=== PATIENT | female | born 1940 | race Caucasian/White ===

== ENCOUNTER 2016-11-06 06:59 | Emergency (ER) | payer OTHER ==
[~2016-11-06] VITALS: Ht 157.5 cm; Wt 76.7 kg
[2016-11-06 07:09] VITALS: BP 180/74
--- NOTE | 2016-11-06 07:40 | ED GI/GU/ABDOMINAL COMPLAINT ---
History of Present Illness General Chief Complaint: General Adult Stated Complaint: PT C/O BACK PAIN AFTER HAVING BM Source: patient, family, old records Exam Limitations: dementia Vital Signs & Intake/Output Vital Signs & Intake/Output Vital Signs Date Time Temp Pulse Resp B/P B/P Pulse O2 O2 Flow FiO2 Mean Ox Delivery Rate 11/06 0748 Room Air Room Air 11/06 0709 97.0 73 20 180/74 96 Room Air Allergies Coded Allergies: No Known Allergies (11/06/16) Reconcile Medications Aspirin (Aspirin*) 81 MG TAB.CHEW 1 TAB PO DAILY HEART HEALTH (Reported) Calcium (Elemental-Fr Calcarb) (Calcium) 600 MG CALCIUM (1,500 MG) TABLET 1 TAB PO DAILY SUPPLEMENT (Reported) Cholecalciferol (Vitamin D3) (Vitamin D) 2,000 UNIT TABLET 1 TAB PO DAILY VITAMIN SUPPORT (Reported) Famotidine 40 MG TABLET 1 TAB PO DAILY GI (Reported) Simvastatin (Simvastatin*) 40 MG TABLET 1 TAB PO QPM CHOLESTEROL (Reported) Triage Note: PT TO ED C/O BACK PAIN X A FEW WEEKS. DENIES ANY INJURY. STATES PAIN IS WORSE WITH HAVING A BM. HAS TAKEN ADVIL WITH SOME RELIEF. STATES SOMETIMES SHE HAS TO STRAIN WITH HAVING A BM. Triage Nurses Notes Reviewed? yes ? N Is pt currently ? No HPI: Patient states that she suffers from mid back pain. Yesterday while moving her bowels had a sudden onset of mid back pain. The pain is constant. The pain increases with movement. There is no weakness or numbness. Patient states that her abdomen feels bloated this morning. The pain is sharp and throbbing in nature. She rates it as severe on the pain scale. Patient took a half pill of Advil last night without any relief. Patient denies any incontinence of bowel or bladder. Patient states that occasionally the pain radiates to her right lower quadrant but is not doing so currently. Patient has not noticed any blood in her urine. Past History Travel History Traveled to [place] past 21 day No Medical History Any Pertinent Medical History? see below for history Neurological: seizure, BRAIN ANEURYSM Cardiovascular: hypertension, hyperlipidemia Gastrointestinal: GERD Surgical History Surgical History: hysterectomy, gamma knife Psychosocial History What is your primary language Sierra Leonean Tobacco Use: Quit >30 days ago ETOH Use: denies use Illicit Drug Use: denies illicit drug use Family History Hx Contributory? No Review of Systems Review of Systems Constitutional: Reports: no symptoms. EENTM: Reports: no symptoms. Respiratory: Reports: no symptoms. Cardiovascular: Reports: no symptoms. GI: Reports: see HPI, bloating. Genitourinary: Reports: no symptoms. Musculoskeletal: Reports: see HPI, back pain. Skin: Reports: no symptoms. Neurological/Psychological: Reports: no symptoms. Hematologic/Endocrine: Reports: no symptoms. Immunologic/Allergic: Reports: no symptoms. All Other Systems: Reviewed and Negative Physical Exam Physical Exam General Appearance: well developed/nourished, alert, awake, mild distress Head: atraumatic, normal appearance Eyes: Bilateral: PERRL, EOMI. Ears, Nose, Throat, Mouth: hearing grossly normal, moist mucous membrane Neck: normal inspection, supple, full range of motion Respiratory: normal breath sounds, chest non-tender, no respiratory distress, lungs clear Cardiovascular: regular rate/rhythm, normal peripheral pulses Gastrointestinal: normal bowel sounds, soft, non-tender, no organomegaly, DISTENDED Back: CVA tenderness (R), no vertebral tenderness Extremities: normal range of motion Neurologic/Psych: no motor/sensory deficits, awake, alert, oriented x 3, normal gait, normal mood/affect Skin: intact, normal color, warm/dry Core Measures ACS in differential dx? No Severe Sepsis Present: No Septic Shock Present: No Progress Differential Diagnosis: AAA, biliary colic, bowel obstruction, cholecystitis, ischemic bowel, inflamm bowel dis, kidney stone, UTI/pyelo Plan of Care: Orders Procedure Date/time Status URINALYSIS 11/06 0739 Complete COMPREHENSIVE METABOLIC PANEL 11/06 0739 Complete CBC WITHOUT DIFFERENTIAL 11/06 0739 Complete Laboratory Tests 11/06/16 0855: Urine Color YEL, Urine Clarity CLEAR, Urine pH 6.0, Ur Specific [place] 1.025, Urine Protein NEG, Urine Ketones TRACE H, Urine Nitrite NEG, Urine Bilirubin NEG, Urine Urobilinogen 0.2, Ur Leukocyte Esterase NEG, Ur Microscopic EXAM NOT REQUIRED, Urine Hemoglobin NEG, Urine Glucose NEG 11/06/16 0750: Anion Gap 13, Estimated GFR 54 L, BUN/Creatinine Ratio 25.0, Glucose 109 H, Calcium 9.7, Total Bilirubin 0.7, AST 28, ALT 36, Alkaline Phosphatase 62, Total Protein 7.4, Albumin 4.4, Globulin 3.0, Albumin/Globulin Ratio 1.5, CBC w Diff NO MAN DIFF REQ, RBC 4.71, MCV 88.8, MCH 30.2, RDW 13.2, MPV 9.4, Gran % 72.0, Lymphocytes % 15.6 L, Monocytes % 9.4 H, Eosinophils % 2.6, Basophils % 0.4, Absolute Granulocytes 6.4, Absolute Lymphocytes 1.4, Absolute Monocytes 0.8 H, Absolute Eosinophils 0.2, Absolute Basophils 0, PUBS MCHC 34.0 Diagnostic Imaging: Viewed by Me: CT Scan. Discussed w/RAD: CT Scan. Radiology Impression: PATIENT: WESTLEY HERNANDEZ PRESENT AGE: 76 PATIENT ACCOUNT NO: [id number] : 41 LOCATION: [facility] ORDERING PHYSICIAN: FREDA HENRY MD SERVICE DATE: 11/06/16 EXAM TYPE: CAT - CT ABD & PELVIS W/O IV CONTRAS EXAMINATION: CT ABDOMEN AND PELVIS WITHOUT CONTRAST CLINICAL INFORMATION: Right flank pain COMPARISON: None TECHNIQUE: Multidetector volumetric imaging was performed from the superior aspect of the liver through the pubic symphysis. Sagittal and coronal reformatted images were obtained on the technologist's workstation. DLP: 394.16 mGy-cm FINDINGS: LUNG BASES: There are mild bibasilar opacities favoring atelectasis. LIVER, GALLBLADDER, AND BILIARY TREE: The liver is normal in size, shape, and attenuation. No focal hepatic lesion or biliary ductal dilatation is present. The gallbladder is unremarkable. PANCREAS: Unremarkable. SPLEEN: Unremarkable. ADRENAL GLANDS: Unremarkable. KIDNEYS AND URETERS: The kidneys are normal in size, shape, and attenuation. No hydronephrosis, hydroureter, or calculi seen. No perinephric stranding. BLADDER: Unremarkable. GASTROINTESTINAL TRACT: There is suggestion of a small hiatal hernia. Colonic diverticulosis is noted. The small and large bowel are otherwise unremarkable without evidence of obstruction or pericolonic inflammatory change. The appendix is unremarkable. No free fluid or free air is seen. ABDOMINAL WALL: No significant hernia is appreciated. LYMPH NODES: Normal. VASCULAR: There is atherosclerotic calcification along the aorta. PELVIC VISCERA: Patient is status post hysterectomy. OSSEOUS STRUCTURES: Degenerative changes are noted in the spine. IMPRESSION: 1. No renal/ureteral calculi or hydronephrosis. 2. Suggestion of a small hiatal hernia. 3. Colonic diverticulosis. DICTATED BY: EMMANUEL PERES MD DATE/TIME DICTATED:11/06/16808 ALTERATION TAILOR APPRENTICE:UZMA DATE/TIME TRANSCRIBED:11/06/16808 CONFIDENTIAL, DO NOT COPY WITHOUT APPROPRIATE AUTHORIZATION. <Electronically signed in Other Vendor System> SIGNED BY: EMMANUEL PERES MD 11/06/16818 Initial ED EKG: none Comments: PT IS FEELING MUCH BETTER AFTER THE TORADOL. Departure Departure Disposition: HOME OR SELF CARE Condition: Stable Clinical Impression Primary Impression: Back pain Referrals: JOSHUA PACE MD (PCP/Family) Additional Instructions: RETURN IF SYMTPOMS WORSEN OR FOR ANY CONCERNS Departure Forms: Customer Survey General Discharge Information
[2016-11-06] MEDS ORDERED: FAMOTIDINE40 M1 PO (08:00)
[2016-11-06] MEDS ORDERED: SIMVASTATIN40 M1 PO (08:00)
[2016-11-06] MEDS ORDERED: CALCIUM600 M3 PO (08:01)
[2016-11-06] MEDS ORDERED: ASPIRIN81 M4 PO (08:01)
[2016-11-06 08:02] LABS: ABSOLUTE BASOPHIL COUNT 0 /CUMM (0.0-0.2); ABSOLUTE EOSINOPHIL COUNT 0.2 /CUMM (0.0-0.7); ABSOLUTE GRANULOCYTE CT 6.4 /CUMM (1.4-6.5); ABSOLUTE LYMPH COUNT 1.4 /CUMM (1.2-3.4); ABSOLUTE MONOCYTE COUNT 0.8 /CUMM (0.10-0.60); BASOPHIL % 0.4 % (0.0-2.0); EOSINOPHIL % 2.6 % (0-5); HEMATOCRIT 41.8 % (37-47); MEAN CORPUSCULAR HGB 30.2 PG (27.0-31.0); MEAN CORPUSCULAR VOLUME 88.8 FL (81.0-99.0); MEAN PLATELET VOLUME 9.4 FL (7.4-10.4); PLATELET COUNT 185 /CUMM (130-400); RBC DISTRIBUTION WIDTH 13.2 % (11.5-14.5); RED BLOOD CELL CT 4.71 /CUMM (4.20-5.40); WHITE BLOOD CELL COUNT 8.9 /CUMM (4.8-10.8)
[2016-11-06] MEDS ORDERED: VITAMIN D2000 UNI1 PO (08:02)
--- NOTE | 2016-11-06 08:19 | CT SCAN REPORT ---
EXAMINATION: CT ABDOMEN AND PELVIS WITHOUT CONTRAST CLINICAL INFORMATION: Right flank pain COMPARISON: None TECHNIQUE: Multidetector volumetric imaging was performed from the superior aspect of the liver through the pubic symphysis. Sagittal and coronal reformatted images were obtained on the technologist's workstation. DLP: 394.16 mGy-cm FINDINGS: LUNG BASES: There are mild bibasilar opacities favoring atelectasis. LIVER, GALLBLADDER, AND BILIARY TREE: The liver is normal in size, shape, and attenuation. No focal hepatic lesion or biliary ductal dilatation is present. The gallbladder is unremarkable. PANCREAS: Unremarkable. SPLEEN: Unremarkable. ADRENAL GLANDS: Unremarkable. KIDNEYS AND URETERS: The kidneys are normal in size, shape, and attenuation. No hydronephrosis, hydroureter, or calculi seen. No perinephric stranding. BLADDER: Unremarkable. GASTROINTESTINAL TRACT: There is suggestion of a small hiatal hernia. Colonic diverticulosis is noted. The small and large bowel are otherwise unremarkable without evidence of obstruction or pericolonic inflammatory change. The appendix is unremarkable. No free fluid or free air is seen. ABDOMINAL WALL: No significant hernia is appreciated. LYMPH NODES: Normal. VASCULAR: There is atherosclerotic calcification along the aorta. PELVIC VISCERA: Patient is status post hysterectomy. OSSEOUS STRUCTURES: Degenerative changes are noted in the spine. IMPRESSION: 1. No renal/ureteral calculi or hydronephrosis. 2. Suggestion of a small hiatal hernia. 3. Colonic diverticulosis.
== END 2016-11-06 09:33 ==
LOC: ERH 06:59
PROVIDERS: Emergency Medicine
DX: M54.9 Dorsalgia, unspecified (principal)
CPT/HCPCS: 74176; 81003; 96372; J1885

== ENCOUNTER 2017-10-12 19:19 | Inpatient (IN) | payer OTHER ==
[~2017-10-12] VITALS: Ht 157.5 cm; Wt 69.1 kg
[~2017-10-12 19:19] MED LIST: ASPIRIN81 M4 PO; BACLOFEN10 M1 PO; CALCIUM600 M3 PO; FAMOTIDINE40 M1 PO; IBUPROFEN600 M1 PO; SIMVASTATIN40 M1 PO; VITAMIN D2000 UNI1 PO
--- NOTE | 2017-10-12 19:35 | ED GENERAL ADULT ---
History of Present Illness General Chief Complaint: Neuro Symptoms/ Deficit Stated Complaint: BIBA HEADACHE, HIGH BP, MIN RESPONSIVE Source: family, EMS Exam Limitations: confusion, poor historian Vital Signs & Intake/Output Vital Signs & Intake/Output Vital Signs Date Time Temp Pulse Resp B/P B/P Pulse O2 O2 Flow FiO2 Mean Ox Delivery Rate 10/12 2156 96.7 69 18 160/80 96 Room Air 10/12 2058 96.7 66 20 133/86 97 Room Air 10/12 1944 99 Room Air 10/12 1930 98.5 73 22 193/86 99 Room Air Allergies Coded Allergies: No Known Allergies (11/06/16) Reconcile Medications Aspirin (Aspirin*) 81 MG TAB.CHEW 1 TAB PO DAILY HEART HEALTH (Reported) Baclofen 10 MG TABLET 1 TAB PO TIDPRN PRN muscle spasm/strain Calcium (Elemental-Fr Calcarb) (Calcium) 600 MG CALCIUM (1,500 MG) TABLET 1 TAB PO DAILY SUPPLEMENT (Reported) Cholecalciferol (Vitamin D3) (Vitamin D) 2,000 UNIT TABLET 1 TAB PO DAILY VITAMIN SUPPORT (Reported) Famotidine 40 MG TABLET 1 TAB PO DAILY GI (Reported) Ibuprofen 600 MG TABLET 1 TAB PO Q6P PRN pain with food Simvastatin (Simvastatin*) 40 MG TABLET 1 TAB PO QPM CHOLESTEROL (Reported) Triage Note: PT BIBA FROM HOME. FAMILY TOLD EMS PT BEGAN TO COMPLAIN OF HEADACHE A 6AM AND WAS NOT ACTING HERSELF ALL DAY, AND BECOMING LESS RESPONSIVE. PT ARRIVES ALERT BUT ONLY SAYING "OH GOD", NOT ANSWERING QUESTIONS, NOT RESPONDING TO COMMANDS. BS PER EMS 122. [facility] Triage Nurses Notes Reviewed? yes Onset: Abrupt Duration: hour(s): Timing: recent history HPI: 10/11/17 7:45 PM 77-year-old female brought into the emergency department by ambulance for altered mental status. According to the family the patient was doing okay after she was discharged on Wednesday. She seemed to be okay Wednesday evening. This morning she was confused and grabbing at things. She is progressively become more confused throughout the day. She was last seen normal last night. On physical exam she is agitated and confused. There is no focal weakness. Pupils are reactive. Past History Travel History Traveled to [place] past 21 day No Medical History Any Pertinent Medical History? see below for history Neurological: CVA, seizure, BRAIN ANEURYSM EENT: NONE Cardiovascular: hypertension, hyperlipidemia Respiratory: NONE Gastrointestinal: GERD Hepatic: NONE Renal: NONE Musculoskeletal: NONE Psychiatric: NONE Endocrine: NONE Blood Disorders: NONE Cancer(s): NONE TRANSCRIPTION COORDINATOR/Reproductive: NONE Surgical History Surgical History: hysterectomy, gamma knife Psychosocial History What is your primary language Bahamian Tobacco Use: Refused to answer ETOH Use: denies use Family History Hx Contributory? No Review of Systems Review of Systems Constitutional: Denies: fever. EENTM: Denies: visual changes. Respiratory: Denies: short of breath. Cardiovascular: Denies: chest pain. GI: Reports: no symptoms. Genitourinary: Reports: no symptoms. Musculoskeletal: Reports: no symptoms. Skin: Denies: rash. Neurological/Psychological: Reports: confusion. Hematologic/Endocrine: Denies: bruising, bleeding. Immunologic/Allergic: Reports: no symptoms. Physical Exam Physical Exam General Appearance: anxious, severe distress Head: atraumatic, normal appearance Eyes: Bilateral: PERRL. Ears, Nose, Throat: normal ENT inspection Neck: normal inspection Respiratory: normal breath sounds, chest non-tender, no respiratory distress Cardiovascular: regular rate/rhythm Peripheral Pulses: 4+ radial (R), 4+ radial (L) Gastrointestinal: non-tender Back: decreased range of motion Extremities: pedal edema Neurologic/Psych: disoriented x 3, CONFUSED Skin: intact, normal color Core Measures ACS in differential dx? No CVA/TIA Diagnosis: Yes NIH Stroke Scale (24 Hours) NIH Stroke Scale (24 Hours) Response Value Level of Consciousness drowsy 1 LOC Questions incorrect 2 LOC Commands incorrect 2 Best Gaze normal 0 Visual Dhillon no visual loss 0 Facial Paresis normal 0 Motor Arm - Left no drift 0 Motor Arm - Right no drift 0 Motor Leg - Left no drift 0 Motor Leg - Right no drift 0 Limb Ataxia no ataxia 0 Sensory normal 0 Best Language mild to moderate aphasia 1 Dysarthria mild/mod slurring words 1 Total 7 Date Last Known Well: 10/11/17 Time Last Known Well: 1900 Symptom start date: 10/11/17 Symptom start time: 1700 Reason tPA not ordered Medical Contraindication Swallow Evaluation Not Done Sepsis Present: No Sepsis Focused Exam Completed? No Progress Differential Diagnoses I considered the following diagnoses in my evaluation of the patient: [CVA, TIA, seizure, adverse drug reaction] Plan of Care: Orders Procedure Date/time Status Nothing by Mouth 10/13 B Active URINALYSIS 10/12 2204 Active Patient Data 10/12 2154 Active ED Holding Orders 10/12 2146 Active Admit to inpatient 10/12 2146 Active Vital Signs 10/12 2146 Active Code Status 10/12 2146 Active Intake & Output 10/12 2058 Active FingerStick- Glucose 10/12 1946 Active NIH Stroke Scale 10/12 1944 Active Saline Lock 10/12 1937 Active TROPONIN LEVEL 10/12 1937 Complete COMPREHENSIVE METABOLIC PANEL 10/12 1937 Complete CBC WITHOUT DIFFERENTIAL 10/12 1937 Complete EKG 10/12 1937 Active Laboratory Tests 10/12/171950: Anion Gap 13, Estimated GFR > 60, BUN/Creatinine Ratio 23.3, Glucose 138 H, Calcium 9.7, Total Bilirubin 0.7, AST 22, ALT 28, Alkaline Phosphatase 63, Troponin I < 0.01, Total Protein 7.7, Albumin 4.6, Globulin 3.1, Albumin/ Globulin Ratio 1.5, CBC w Diff NO MAN DIFF REQ, RBC 5.21, MCV 89.1, MCH 29.9, MCHC 33.6, RDW 13.4, MPV 10.5 H, Gran % 80.8 H, Lymphocytes % 12.2 L, Monocytes % 6.2, Eosinophils % 0.5, Basophils % 0.3, Absolute Granulocytes 9.5 H, Absolute Lymphocytes 1.4, Absolute Monocytes 0.7 H, Absolute Eosinophils 0.1 , Absolute Basophils 0 Initial ED EKG: NSR, nonspecific ST T wave chg Prior EKG: unchanged Departure Departure Disposition: STILL A PATIENT Condition: Stable Clinical Impression Primary Impression: Altered mental status Referrals: Kristina Raya MD (PCP/Family) Departure Forms: Customer Survey General Discharge Information Admission Note Spoke With: Finn PATTON,Sergio Documentation of Exam: Documentation of any treatments & extenuating circumstances including Concerns Regarding Discharge (functional status, medication knowledge or non-compliance, living conditions, etc.) that warrant an admission rather than observation: [The patient is admission to neuro checks every 4 hours, review of medications, MRI and had] Critical Care Note Critical Care Note Critical Care Time: 30-74 min
[2017-10-12 20:00] LABS: ABSOLUTE BASOPHIL COUNT 0 /CUMM (0.0-0.2); ABSOLUTE EOSINOPHIL COUNT 0.1 /CUMM (0.0-0.7); ABSOLUTE GRANULOCYTE CT 9.5 /CUMM (1.4-6.5); ABSOLUTE LYMPH COUNT 1.4 /CUMM (1.2-3.4); ABSOLUTE MONOCYTE COUNT 0.7 /CUMM (0.10-0.60); BASOPHIL % 0.3 % (0.0-2.0); EOSINOPHIL % 0.5 % (0-5); GRANULOCYTE % 80.8 % (42.2-75.2); HEMATOCRIT 46.4 % (37-47); MEAN CORPUSCULAR HGB 29.9 PG (27.0-31.0); MEAN CORPUSCULAR HGB CONC 33.6 G/DL (33.0-37.0); MEAN CORPUSCULAR VOLUME 89.1 FL (81.0-99.0); MEAN PLATELET VOLUME 10.5 FL (7.4-10.4); PLATELET COUNT 202 /CUMM (130-400); RBC DISTRIBUTION WIDTH 13.4 % (11.5-14.5); RED BLOOD CELL CT 5.21 /CUMM (4.20-5.40); WHITE BLOOD CELL COUNT 11.7 /CUMM (4.8-10.8)
--- NOTE | 2017-10-12 20:24 | CT SCAN REPORT ---
EXAMINATION: CT ABDOMEN AND PELVIS WITHOUT CONTRAST CLINICAL INFORMATION: Abdominal pain. Confusion. COMPARISON: CT of the abdomen and pelvis from 11/06/2016. TECHNIQUE: Multidetector volumetric imaging was performed from the superior aspect of the liver through the pubic symphysis. Sagittal and coronal reformatted images were obtained on the technologist's workstation. DLP: 488 mGy-cm FINDINGS: There is motion artifact as well as streak artifact from the position of the arms by the sides. LUNG BASES: There is breathing artifact in the lung bases. Minor dependent change. The imaged heart and pericardium are unremarkable. Coronary calcifications are visualized. There is a small hiatal hernia. LIVER, GALLBLADDER, AND BILIARY TREE: The liver is normal in size, shape, and attenuation. No focal hepatic lesion or biliary ductal dilatation is present. The gallbladder is unremarkable with no evidence of radiopaque gallstones, gallbladder wall thickening, or obvious pericholecystic inflammatory changes. PANCREAS: Unremarkable. SPLEEN: Unremarkable. ADRENAL GLANDS: Unremarkable. KIDNEYS AND URETERS: The kidneys are normal in size, shape, and attenuation. No hydronephrosis, hydroureter, or calculi seen. No perinephric stranding. BLADDER: Unremarkable. GASTROINTESTINAL TRACT: The small and large bowel are unremarkable. The appendix is unremarkable. ABDOMINAL WALL: No significant hernia is appreciated. No ascites or free air. LYMPH NODES: Normal. VASCULAR: Moderate calcification of the aorta and iliac arteries. PELVIC VISCERA: Status post hysterectomy. No adnexal masses. OSSEOUS STRUCTURES: The bones appear somewhat demineralized. There is multilevel degenerative change of the spine and a [id number] dextroconvex scoliosis. No compression deformities or evidence of acute osseous abnormality. IMPRESSION: No acute intra-abdominal or intrapelvic pathology is visualized.
--- NOTE | 2017-10-12 20:24 | CT SCAN REPORT ---
EXAMINATION: CT HEAD WITHOUT CONTRAST CT CERVICAL SPINE WITHOUT CONTRAST CLINICAL INFORMATION: Altered mental status. Confusion. Neck pain. COMPARISON: CT head 12/29/2014, 10/10/2017 TECHNIQUE: Imaging was performed from the skull base to vertex without intravenous administration of contrast. In addition, helical noncontrast CT imaging was acquired through the cervical spine and source images were reviewed along with axial reconstructions and sagittal and coronal MPRs. DLP: 1830 mGy-cm FINDINGS: There is motion which degrades quality of study. HEAD: No change of the area of low attenuation with adjacent linear cortical calcifications involving the left parietal cortex. This is consistent with a old infarct. There is no acute intracranial abnormality. No intracranial mass, hemorrhage, or midline shift is visualized. The ventricles and sulci are age-appropriate. No extra-axial collections are identified. There is atherosclerotic vascular wall calcification of the internal carotid arteries bilaterally. The paranasal sinuses and mastoid air cells are well aerated. CERVICAL SPINE: There is no evidence of acute cervical spine fracture. Vertebral bodies remain normal in height. There is advanced degenerative change of the cervical spine. There is cervical disc height narrowing at C5-C6 and C6-C7 with prominent anterior and posterior spurs. There is also marked narrowing at C4-C5 with spurs. There is a anterior listhesis of C4 on C5 due to facet joint arthrosis. There is multilevel facet joint arthrosis which is most significant at the upper cervical spine. No pre- or paravertebral soft tissue abnormality is identified. Limited assessment of the lung apices is unremarkable. IMPRESSION: 1. No acute intracranial pathology. No change of old left parietal lobe infarct. 2. No CT evidence of acute cervical spine fracture or traumatic subluxation. Marked degenerative change of the cervical spine.
--- NOTE | 2017-10-12 21:58 | History & Physical ---
Cluadia PATTON,[facility] 10/12/17 0920: General Information and HPI MD Statement: I have seen and personally examined WESTLEY HERNANDEZ and documented this H&P. The patient is a 77 year old F who presented with a patient stated chief complaint of [altered mental status]. Source of Information: family, old records Exam Limitations: clinical condition, confusion History of Present Illness: 77 yo F with PMH of hypertension, hyperlipidemia, GERD, CVA, brain aneurysm s/p gamma knife was brought in to the ED for evaluation of AMS. History has been obtained from the friends that were present at the bedside as the patient is confused and noncommunicative. Patient has no family members. She lives with her friends in a senior housing facility. Per friends the patient's first started experiencing headache in the back of her head last month. She described it as an ache attributed to sleeping in the wrong position. The patient apparently experienced it twice last month. Patient was seen in the ER yesterday for her symptoms. It was attributed to muscle sprain and was prescribed Baclofen. Today the friend visited the patient around 7am and she complained about the headache again after which she decided to rest. The friend later visited the patient around 1pm and the patient stated that her headache was improving. Around 6pm, the friend visited the patient again at which point she found her to be ' completely out of it'. Her kitchen was scattered with her stuff. She was trying to reach out objects but was not able to grab them and she was trying to reach out for stuff on the floor which wasn't there. She was noncommunicative and was only saying 'oh God'. She was holding her belly as if to indicate she was having pain there. However, the friend states that the patient did tell her at one point that she vomited once today. The friend does state that the patient has not eaten or drinked properly for the past few days. No history of sick contacts. No history of prior such episodes. The patient is reported to very active and independent at baseline Allergies/Medications Allergies: Coded Allergies: No Known Allergies (11/06/16) Home Med list Aspirin (Aspirin*) 81 MG TAB.CHEW 1 TAB PO DAILY HEART HEALTH (Reported) Baclofen 10 MG TABLET 1 TAB PO TIDPRN PRN muscle spasm/strain Calcium (Elemental-Fr Calcarb) (Calcium) 600 MG CALCIUM (1,500 MG) TABLET 1 TAB PO DAILY SUPPLEMENT (Reported) Cholecalciferol (Vitamin D3) (Vitamin D) 2,000 UNIT TABLET 1 TAB PO DAILY VITAMIN SUPPORT (Reported) Famotidine 40 MG TABLET 1 TAB PO DAILY GI (Reported) Ibuprofen 600 MG TABLET 1 TAB PO Q6P PRN pain with food Simvastatin (Simvastatin*) 40 MG TABLET 1 TAB PO QPM CHOLESTEROL (Reported) Past History Travel History Traveled to [place] past 21 day No Medical History Neurological: CVA, seizure, BRAIN ANEURYSM EENT: NONE Cardiovascular: hypertension, hyperlipidemia Respiratory: NONE Gastrointestinal: GERD Hepatic: NONE Renal: NONE Musculoskeletal: NONE Psychiatric: NONE Endocrine: NONE Blood Disorders: NONE Cancer(s): NONE COMPUTING ARCHITECT/Reproductive: NONE Surgical History Surgical History: hysterectomy, gamma knife Past Family/Social History Psychosocial History ETOH Use: denies use Review of Systems Review of Systems Constitutional: Denies: chills, fever. EENTM: Reports: no symptoms. Cardiovascular: Reports: no symptoms. Respiratory: Reports: no symptoms. GI: Reports: vomiting. Genitourinary: Reports: no symptoms. Musculoskeletal: Reports: no symptoms. Skin: Reports: no symptoms. Neurological/Psychological: Reports: headache. Hematologic/Endocrine: Reports: no symptoms. Exam & Diagnostic Data Last 24 Hrs of Vital Signs/I&O Vital Signs Date Time Temp Pulse Resp B/P B/P Pulse O2 O2 Flow FiO2 Mean Ox Delivery Rate 10/12 2156 96.7 69 18 160/80 96 Room Air 10/12 2058 96.7 66 20 133/86 97 Room Air 10/12 194 99 Room Air 10/12 193 98.5 73 22 193/86 99 Room Air Physical Exam General Appearance awake, orientation not able to assessed, moderate distress Skin No Rashes, No Breakdown Skin Temp/Moisture Exam: Warm/Dry Sepsis Skin Exam (color): Normal for Ethnicity HEENT Atraumatic Cardiovascular Normal S1, Normal S2, No Murmurs Lungs Normal Air Movement Abdomen Soft, No Tenderness Extremities No Edema Assessment/Plan Assessment: 77 yo F with PMH of hypertension, hyperlipidemia, GERD, CVA, brain aneurysm was brought in to the ED for evaluation of AMS. Assessment: 1. Altered Mental Status possibly secondary to Stroke 2. History of Hypertension 3. History of CVA and Stroke 4. Urinary Retention Plan: * Admit patient to telemetry for monitoring of arrhythmia * Will keep her NPO due to her clinical condition * R/O ACS with serial trops and EKG * Neurology consult for her AMS * CT Head/Neck did not reveal any vascular occulusion * MRI in am to assess for any acute infarct * Carotid U/S to assess for carotid stenosis. * EEG to r/o seizure and altered mental status * Neurochecks q2 * Echocardiogram for LV thrombus * She had a large volume urinary incontinence in ED with subsequent drainage of 500cc of urine via straight cath. Her urinary retention was likely causing her abdominal pain. * Follow up urine culture. * Swallow evaluation in am * Confirm medication list in am. Patient's friend is suppposed to bring them in. * Diet: NPO * DVT Prophylaxis: SC Lovenox * Code: Full Code As Ranked By This Provider Problem List: 1. Altered mental status Core Measures/Misc (03/14) Acute Coronary Syndrome ACS Diagnosis: No Congestive Heart Failure Congestive Heart Failure Diagnosis No Cerebrovascular Accident CVA/TIA Diagnosis: Yes Date Last Known Well: 10/12/17 Time Last Known Well: 1300 Symptom Start Date: 10/12/17 Symptom Start Time: 1800 Swallow Evaluation Not Done Current/Past Hx AFib/AFlutter No VTE (View Protocol) VTE Risk Factors Age>40 No Mechanical VTE Prophylaxis d/t N/A MechProphylax Ordered No VTE Pharm Prophylaxis d/t NA PharmProphylax ordered Sepsis (View protocol) Sepsis Present: No Finn PATTON, [facility] 10/13/17 0129: Attending MD Review Statement Attending Statement Attending MD Statement: examined this patient, discuss w/resident/PA/FLORIST'S DECORATOR, agreed w/resident/PA/FLORIST'S DECORATOR, discussed with family, reviewed images, amended to note Attending Assessment/Plan: 77 yo F with h/o HTN, CVA, brain aneurysm s/p gamma knife, seizure disorder, carotid stenosis, is brought in for evaluation of altered mental status. Patient was seen in ER 2 days ago (WednesdayOctober 10) for right sided neck pain/ occipital headache with right hand numbness that was attributed to tension headache/ cervical strain. She was prescribed baclofen and ibuprofen which she has been taking. Patient had neck pain 1 month ago which she attributed to sleeping on the wrong side. Patient has no family members. Friend was able to provide history. At baseline, patient is independent with ADL's and IADL's and very active. Friend has been visiting patient every few hours. She was last normal Wednesday evening at 7pm. Wednesday morning at 7 am, patient had persistent neck pain, so she took her meds (baclofen/ ibuprofen) and wanted to rest. Friend visited her again at 1 pm and gave her some soup to drink. Around 4.00 pm patient was seen in her bed resting although verbal about her pain. At 5 pm, when friend visited patient, she was completely off, confused, staring into space and not able to respond appropriately. She kept saying 'oh my god'. Her kitchen was scattered with her stuff. She was trying to reach out to objects which were not there. She was then brought to the ER for further evaluation. Patient has seen Dr. Partida in the recent past and most of her medications were adjusted by her PCP. Vitals are stable with borderline high BP. Patient was awake, but would not respond to our questions, she would only stare and state 'on my god'. Exam is limited as patient is not co-operative. She is moving all extremities, withdraws to pain, plantars downgoing. Pupils are RTL, equal. No obvious facial droop. Chest clear. Heart S1S2 regular, systolic murmur. Abd soft, nontender. Labs: WBC 11.7, BUN 21, glucose 138, trop neg. UA clear. CT head/ cervical spine: old left parietal lobe infarct, no cervical spine injury. CT abd/pelvis: no acute pathology. CTA head/neck: no large vessel vascular occlusion. EKG: sinus rhythm, poor Rwave progression, PACs. Assessment and plan: 1. Altered mental status with aphasia. Cannot rule out possibility of stroke vs. Drug adverse effect (baclofen can cause confusion) ?polypharmacy vs. seizure. No vertebral artery dissection, CTA negative for occlusion. 2. History of CVA, brain aneurysm, carotid stenosis 3. History of seizure disorder, now off medications - Admit to Telemetry - Neurochecks Q2 - NPO for now until mentation improvese - Patient received ativan prior to getting CTA head/neck as she was all over the place. This AM, she remains same not following commands. - She was incontinent of large amount of urine and straight cath ~ 500 cc - ? baclofen induced urinary retention, however CT abd did not pick up operator a distended bladder. No UTI. - MRI in AM - EEG - Neuro consult - Carotid dopplers and Echo - Rule out ACS - PT/OT/ speech therapy - If febrile, obtain pancultures - Hold off any sedative medications. DVT ppx Lovenox. Full code Please confirm CMR in AM. Zaira Luo 10/13/17 0641: Resident Review Statement Resident Statement: examined this patient, discussed with customer success intern, agreed with customer success intern, discussed with family, reviewed EMR data (avail), discussed with nursing , discussed with case mgmt, reviewed images, amended to note
--- NOTE | 2017-10-13 01:29 | Admission Certification ---
Admission Certification Certification Statement - As attending physician, I certify that at the time of - admission, based on clinical presentation, severity of - symptoms, need for further diagnostic testing and - therapeutic interventions, and risk of adverse outcomes - without in-hospital treatment, in my clinical assessment, - this patient requires an acute hospital stay for a minimum - of two nights or longer. I have also considered psychsocial - factors such as support system, advanced age, financial - issues, cognitive issues, and failed out-patient treatments, - past re-admission history, safety of patient, and lack of - compliance as applicable. Specific rationale supporting this admission is: Altered mental status, possible stroke.
--- NOTE | 2017-10-13 04:34 | CT SCAN REPORT ---
EXAMINATION: CTA OF THE HEAD/NECK CLINICAL INFORMATION: Altered mental status. Stroke. COMPARISON: CT from 10/12/2017. TECHNIQUE: A routine non contrast head CT was performed earlier in the day. A 95 mL bolus of Optiray 320 was utilized. Subsequent multidetector helical imaging was performed of the head and neck. Delayed post contrast imaging was also performed through the head. Multiplanar reformats and MIP were also obtained. Internal carotid artery stenoses are assessed in accordance with NASCET criteria unless otherwise indicated. 3D reformats will be created and reviewed when available. DLP: 1120 mGy-cm. FINDINGS: CT HEAD: No evidence of acute intracranial hemorrhage or territorial infarction. No abnormal mass effect or midline shift. Chronic left frontoparietal infarct. Lr to white matter differentiation is otherwise preserved. No extra-axial fluid collections are identified. No hydrocephalus. Mild global cerebral volume loss. No suspicious leptomeningeal or parenchymal enhancement on the post-contrast images. The osseous structures and soft tissues are normal. The mastoid air cells and visualized portions of the paranasal sinuses are well aerated. CTA NECK: The aortic arch is of normal caliber and the origins of the great vessels are patent without evidence of significant stenosis. Nonocclusive calcifications are present at the origins of the great vessels. Motion somewhat limits the evaluation of the great vessel origins as well. The cervical portion of the vertebral arteries are patent bilaterally. No luminal irregularities in the common carotid arteries and the carotid bifurcations are patent bilaterally. The cervical portion of the internal carotid arteries are of normal caliber. The laryngeal structures and pharyngeal mucosal spaces are unremarkable. The oral cavity appears normal. The parotid and submandibular glands are normal. No pathologically enlarged lymph nodes. The thyroid gland is unremarkable. The lung apices are clear without evidence of pneumothorax. Multilevel degenerative changes throughout the spine. Slight anterolisthesis of C3 on C4 and C4 on C5. Multilevel endplate osteophyte formation with facet arthropathy. CTA HEAD: The intradural portion of the vertebral arteries are of normal caliber. The basilar, superior cerebellar, and posterior communicating arteries are patent. The basilar artery is somewhat decreased in caliber with prominent posterior communicating arteries supplying the posterior cerebral arteries. The posterior, middle, and anterior cerebral arteries are of normal caliber without evidence of significant luminal irregularity. No definite intracranial aneurysms. The dural venous sinuses appear patent. There is appearance of ovarian anatomy with essentially no left internal jugular vein present. The left transverse sinus and minimal sigmoid sinus drain externally to a posterior neck pain. IMPRESSION: 1. No large vessel vascular occlusion. 2. No acute intracranial findings. No abnormal enhancement.
[2017-10-13 06:35] LABS: ABSOLUTE BASOPHIL COUNT 0.1 /CUMM (0.0-0.2); ABSOLUTE EOSINOPHIL COUNT 0 /CUMM (0.0-0.7); ABSOLUTE GRANULOCYTE CT 9.3 /CUMM (1.4-6.5); ABSOLUTE LYMPH COUNT 1.8 /CUMM (1.2-3.4); BASOPHIL % 0.4 % (0.0-2.0); EOSINOPHIL % 0.3 % (0-5); GRANULOCYTE % 76.3 % (42.2-75.2); HEMATOCRIT 46.8 % (37-47); MEAN CORPUSCULAR HGB 30.1 PG (27.0-31.0); MEAN CORPUSCULAR VOLUME 88.4 FL (81.0-99.0); MEAN PLATELET VOLUME 9.4 FL (7.4-10.4); PLATELET COUNT 196 /CUMM (130-400); RBC DISTRIBUTION WIDTH 13.6 % (11.5-14.5); RED BLOOD CELL CT 5.29 /CUMM (4.20-5.40); WHITE BLOOD CELL COUNT 12.2 /CUMM (4.8-10.8)
--- NOTE | 2017-10-13 08:29 | PN- Housestaff ---
Pawan PATTON,Abdiaziz 10/13/17 0829: Subjective Follow-up For: AMS Subjective: Saw patient at bedside this AM. She was still significantly altered and tearful. However, she seemed to have periods of lucidity and could tell me that she was in [facility] and that she had no pain. Could not obtain accurate ROS from her. Review of Systems Constitutional: Reports: no symptoms. Objective Last 24 Hrs of Vital Signs/I&O Vital Signs Date Time Temp Pulse Resp B/P B/P Pulse O2 O2 Flow FiO2 Mean Ox Delivery Rate 10/13 0848 98 Room Air 10/13 0847 97.6 66 18 169/81 98 Room Air 10/13 0624 96.0 65 18 164/82 96 Room Air 10/13 0132 96.4 65 18 139/79 97 Room Air 10/12 2157 96.7 69 18 160/80 96 Room Air 10/12 2059 96.7 66 20 133/86 97 Room Air 10/12 1945 99 Room Air 10/12 1931 98.5 73 22 193/86 99 Room Air Physical Exam General Appearance: Mild Distress HEENT: Atraumatic, PERRLA, mucous memebranes dry Neck: Supple Cardiovascular: Regular Rate Lungs: Clear to Auscultation Abdomen: Soft, No Tenderness Extremities: No Edema Current Medications: Current Medications Sig/Errol Start time Last Medication Dose Route Stop Time Status Admin Lorazepam 0 .STK-MED ONE 10/13 0149 DC .ROUTE Lorazepam 0.5 MG ONCE ONE 10/13 0145 DC 10/13 IV 10/13 014 0144 Last 24 Hrs of Lab/Guy Results Last 24 Hrs of Labs/Mics: Laboratory Tests 10/13/17 0620: Triglycerides 132, Cholesterol 187, LDL Cholesterol, Calc 96, HDL Cholesterol 65 H, Cholesterol/HDL Ratio 3, CBC w Diff NO MAN DIFF REQ, RBC 5.29, MCV 88.4, MCH 30.1, MCHC 34.0, RDW 13.6, MPV 9.4, Gran % 76.3 H, Lymphocytes % 14.7 L, Monocytes % 8.3, Eosinophils % 0.3, Basophils % 0.4, Absolute Granulocytes 9.3 H, Absolute Lymphocytes 1.8, Absolute Monocytes 1.0 H, Absolute Eosinophils 0, Absolute Basophils 0.1 10/13/17 0231: Urine Opiates Screen 163, Methadone Screen < 40, Barbiturate Screen < 60, Ur Phencyclidine Scrn < 6.00, Amphetamines Screen < 100, U Benzodiazepines Scrn < 85, Urine Cocaine Screen < 50, Urine Cannabis Screen < 5.00, Urine Color YEL, Urine Clarity CLEAR, Urine pH 7.0, Ur Specific [place] 1.015, Urine Protein NEG, Urine Ketones 40 H, Urine Nitrite NEG, Urine Bilirubin NEG, Urine Urobilinogen 0.2, Ur Leukocyte Esterase NEG, Ur Microscopic EXAM NOT REQUIRED, Urine Hemoglobin NEG, Urine Glucose NEG 10/13/17 0125: Troponin I < 0.01 10/13/17124: Anion Gap 16, Estimated GFR > 60, BUN/Creatinine Ratio 22.5 10/12/171950: Anion Gap 13, Estimated GFR > 60, BUN/Creatinine Ratio 23.3, Glucose 138 H, Calcium 9.7, Total Bilirubin 0.7, AST 22, ALT 28, Alkaline Phosphatase 63, Troponin I < 0.01, Total Protein 7.7, Albumin 4.6, Globulin 3.1, Albumin/ Globulin Ratio 1.5, CBC w Diff NO MAN DIFF REQ, RBC 5.21, MCV 89.1, MCH 29.9, MCHC 33.6, RDW 13.4, MPV 10.5 H, Gran % 80.8 H, Lymphocytes % 12.2 L, Monocytes % 6.2, Eosinophils % 0.5, Basophils % 0.3, Absolute Granulocytes 9.5 H, Absolute Lymphocytes 1.4, Absolute Monocytes 0.7 H, Absolute Eosinophils 0.1 , Absolute Basophils 0 Microbiology 10/13 1001 URINE ROUT: Urine Culture - COLB 10/13 1001 BLOOD: Blood Culture - COLB 10/13 1002 BLOOD: Blood Culture - COLB Assessment/Plan Assessment: ASSESSMENT: This a 77 yo female with PMH of HTN, HLD, prior CVA, brain aneurysm s/p gamma knife who comes in for AMS. In ED she was agitateda incapable of following any commands except repeating "Oh my God." Initial differential in this pt includes intracranial hemorrhage, CVA (given prev hx CVA), carotid/ vertebral artery dissection but CT/CTA not indicative of either. Other thoughts include Baclofen toxicity which is associated with encephalopathy and particularly exacerbated by benzodiazepines, PRES due to baclofen, ICP, infectious etiology including meningitis/encephalitis. At this time no clear etiology has emerged as such we will continue to monitor on telemetry for further evaluation. PLAN 1. AMS: CTA head and neck clear. Negative Utox. Given her hx of previous CVA there is concern for another ischemic event. Hemorrhage ruled out by CT head. She is moving all extremeties equally but is very altered with waxing and waning mental status. She keeps noting headache. * Follow up neuro consult * Pending MRI * Cont' neuro check * Pending EEG * Swallow eval * Once she passes swallow eval will start on ASA and statin * Con't Telemetry 2. HTN: At this time cannot rule out CVA so will allow for permissive htn until MRI returns. * Hold BP meds 3. Urinary retention: Pt had c/o abdominal pain yesterday which seemed to relieve after straight cath. Possible medication related urinary retention. * Straight cath protocol 4. Leukocytosis: Unsure of etiology. Pt has been afebrile. However,will proceed with infectious work up. * BCX * UCX * XRY chest fc chem dvt ppx npo Problem List: 1. Altered mental status Pain Ratin Pain Location: none Pain Goal: Remain pain free Pain Plan: none Tomorrow's Labs & Rationales: cbc bep Issa Tian 10/13/17 1426: Attending MD Review Statement Attending Statement Attending MD Statement: examined this patient, discuss w/resident/PA/MALT LIQUORS SALES REPRESENTATIVE, agreed w/resident/PA/MALT LIQUORS SALES REPRESENTATIVE, discussed with family, reviewed EMR data (avail), discussed with nursing, discussed with case mgmt, reviewed images, amended to note Attending Assessment/Plan: Patient is more awake, alert as per family bedside. Patient had extensive investigation including CTA head/neck so far which has resulted negative for acute pathology. Patient is on baclofen at home. Recommend to Discontinue baclofen and follow neurology consult. EEG with possible toxic metabolic encepahlaopthy. Due to her improvement in clinical conditin cont current management.
--- NOTE | 2017-10-13 10:08 | ULTRASOUND REPORT ---
EXAMINATION: DUPLEX BILATERAL CAROTID ULTRASOUND CLINICAL INFORMATION: Stroke. COMPARISON: CT angiography of the neck 10/13/2017. TECHNIQUE: Duplex bilateral carotid US was performed using real-time ultrasound and Doppler techniques (integrating B-mode 2D vascular images, Doppler spectral analysis and color flow Doppler imaging). These techniques were utilized to interrogate the extracranial carotid and vertebral arteries bilaterally. The degree of stenosis is based off criteria similar to NASCET. FINDINGS: No plaque is seen at the carotid bifurcations or within the internal carotid arteries. All velocities in the internal carotid arteries are within normal limits. Some plaque is seen in the left common carotid artery with some mild velocity acceleration. Plaque is similar to that seen on the CT angiogram from earlier today. ADDITIONAL FINDINGS: The vertebral arteries show antegrade flow. The external carotid arteries show no significant stenosis. IMPRESSION: No evidence of a hemodynamically significant stenosis involving the internal carotid arteries.
--- NOTE | 2017-10-13 12:03 | RADIOLOGY REPORT ---
EXAMINATION:\H\ \N\XR CHEST CLINICAL INFORMATION: Assess for pneumonia. COMPARISON: Chest x-ray 08/14/2009. TECHNIQUE: A frontal view of the chest was obtained. FINDINGS: The patient is rotated PACE. The lung begum are hypoinflated. There is mild crowding of the bronchovascular markings at the lung bases. There is no focal consolidation. The cardiac silhouette is normal. The aortic arch is calcified and unfolded and the descending artery is tortuous and ectatic, which appears increased compared to the prior study. There are no pleural effusions or pneumothorax. The central pulmonary vasculature is normal. The hilar regions appear normal. There is a mild levoscoliosis in the thoracic spine. IMPRESSION: 1. There are no acute cardiopulmonary findings.
--- NOTE | 2017-10-13 13:24 | ELECTROENCEPHALOGRAM REPORT ---
Electroencephalogram Report Electroencephalogram Results Date of service: 10/13/17 Attending MD: Issa Tian MD Leasing Property Manager: Brandy Ward EEG Number: [id number] Test Utilizes: 10-20 system, modified 13 lead 10 channel digital recording due to patient inability to cooperate for the test, restless, moving, moaning, per medical equipment repair technician Pertinent Hx/Physical/Neuro Findings/Clin Diagnosis: Altered mental status Inpatient Medications: Current Medications Sig/Errol Start time Last Medication Dose Route Stop Time Status Admin Lorazepam 0 .STK-MED ONE 10/13 0149 DC .ROUTE Lorazepam 0.5 MG ONCE ONE 10/13 0145 DC 10/13 IV 10/13 0146 0144 Interpretation: Background severely abnormal with moderate amplitude theta and delta seen generally and prominent frontal beta suggestive of benzodiazepine effect. Triphasic waves are present through much of the recording. No lateralized abnormalities. Activation procedures could not be done. Impression: Abnormal due to marked slowing of the background and triphasic waves suggesting a toxic or metabolic encephalopathy. No focal or epileptiform abnormalities.
--- NOTE | 2017-10-13 15:40 | MRI REPORT ---
EXAMINATION: MR BRAIN WITHOUT CONTRAST CLINICAL INFORMATION: 77-year-old woman with expressive aphasia. COMPARISON: 10/12/2017 CT/CTA TECHNIQUE: MRI of the brain without contrast was obtained using routine sequences. FINDINGS: A small area of chronic cortical infarction and gliosis at the left frontoparietal junction is unchanged. Minimal additional chronic microvascular ischemic changes are seen in the supratentorial white matter. No focal reduced diffusion is seen to suggest acute or subacute cerebral ischemia. No intracranial mass, intracerebral edema, intra-axial blood products, midline shift, or extra-axial collection is visualized. The ventricles and sulcal spaces appear normal. Normal arterial and venous vascular flow voids are present. The paranasal sinuses are well aerated. IMPRESSION: No imaging evidence of acute cerebral ischemia or hemorrhage.
--- NOTE | 2017-10-13 15:50 | RADIOLOGY REPORT ---
EXAMINATION: XR PORTABLE ABDOMEN CLINICAL INFORMATION: Repeated complaints of abdominal pain. COMPARISON: CT scan of the abdomen and pelvis 10/12/2017. TECHNIQUE: AP view of the abdomen was obtained. The image is slightly motion degraded. FINDINGS: There is a nonspecific bowel gas patten. No dilated loops of bowel are demonstrated. Contrast is seen in the urinary bladder, consistent with recent prior intravenous contrast administration. There is a severe rotatory dextroscoliosis. There are no acute osseous findings. There are atheromatous calcifications. IMPRESSION: 1. Nonspecific bowel gas pattern without evidence of obstruction. 2. Contrast is seen in the urinary bladder from prior imaging.
--- NOTE | 2017-10-13 15:58 | Cons- Neurology ---
General Information and HPI Consulting Request Date of Consult: 10/13/17 Requested By: Issa Tian MD Reason for Consult: Altered mental status, headacne Source of Information: patient, old records, friend Exam Limitations: not alert/orientated History of Present Illness: 77 year old female known to me for trigeminal neuralgia s/p gammaknife treatment has been complaining to friends of a posterior headache the last few weeks. She resides at a [facility] housing facility. Taking Baclofen unknown quantities. Yesterday was "out of it" and brought to ER. Very confused, unable to give much history. EEG thisAM markedly abnormal with slowing in theta and delta range and triphasic waves. Examined awaiting MRI, unable go provide any useful information, repeatedly complains of headache. Allergies/Medications Allergies: Coded Allergies: No Known Allergies (11/06/16) Home Med List: Aspirin (Aspirin*) 81 MG TAB.CHEW 1 TAB PO DAILY HEART HEALTH (Reported) Baclofen 10 MG TABLET 1 TAB PO TIDPRN PRN muscle spasm/strain Calcium (Elemental-Fr Calcarb) (Calcium) 600 MG CALCIUM (1,500 MG) TABLET 1 TAB PO DAILY SUPPLEMENT (Reported) Cholecalciferol (Vitamin D3) (Vitamin D) 2,000 UNIT TABLET 1 TAB PO DAILY VITAMIN SUPPORT (Reported) Famotidine 40 MG TABLET 1 TAB PO DAILY GI (Reported) Ibuprofen 600 MG TABLET 1 TAB PO Q6P PRN pain with food Simvastatin (Simvastatin*) 40 MG TABLET 1 TAB PO QPM CHOLESTEROL (Reported) Current Medications: Current Medications Sig/Errol Start time Last Medication Dose Route Stop Time Status Admin Amlodipine Besylate 2.5 MG DAILY 10/13 1537 UNVr PO Dextrose/Sodium 1,000 ML Q20H 10/13 1545 UNVr Chloride IV 10/14 1144 Enoxaparin Sodium 40 MG DAILY 10/14 0900 AC SC Lorazepam 0 .STK-MED ONE 10/13 0149 DC .ROUTE Lorazepam 0.5 MG ONCE ONE 10/13 0145 DC 10/13 IV 10/13 0146 0144 Review of Systems Review of Systems: Headache, nausea, abdominal pain. 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 Surgical History Surgical History: hysterectomy, gamma knife Psychosocial History Smoking Status: Former Smoker ETOH Use: denies use Exam & Diagnostic Data Vital Signs and I&O Vital Signs Date Time Temp Pulse Resp B/P B/P Pulse O2 O2 Flow FiO2 Mean Ox Delivery Rate 10/13 1236 97.4 63 18 137/98 97 10/13 0848 98 Room Air 10/13 0847 97.6 66 18 169/81 98 Room Air 10/13 0624 96.0 65 18 164/82 96 Room Air 10/13 0132 96.4 65 18 139/79 97 Room Air 10/12 2157 96.7 69 18 160/80 96 Room Air 10/12 2059 96.7 66 20 133/86 97 Room Air 10/12 1945 99 Room Air 10/12 1931 98.5 73 22 193/86 99 Room Air Physical Exam: Appears in pain, moaning and moving restlessly color OK neck supple, no cervical lymphadenopathy lethargic, follows simple commands oriented to name and GH only language seems intact, cannot complete MSE VFF, non-cooperative for fundoscopic,EOMI no nystagmus 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, tone OK DTRx normal, plantar responses silent Last 48 Hours of Lab Results: Laboratory Tests 10/13 10/13 0620 0231 Chemistry Triglycerides (<150 mg/dL) 132 Cholesterol (<200 MG/DL) 187 LDL Cholesterol, Calc (65 - 129 mg/dL) 96 HDL Cholesterol (40 - 60 mg/dL) 65 H Cholesterol/HDL Ratio (0.00 - 4.23 %) 3 Hematology CBC w Diff NO MAN DIFF REQ WBC (4.8 - 10.8 /CUMM) 12.2 H RBC (4.20 - 5.40 /CUMM) 5.29 Hgb (12.0 - 16.0 G/DL) 15.9 Hct (37 - 47 %) 46.8 MCV (81.0 - 99.0 FL) 88.4 MCH (27.0 - 31.0 PG) 30.1 MCHC (33.0 - 37.0 G/DL) 34.0 RDW (11.5 - 14.5 %) 13.6 Plt Count (130 - 400 /CUMM) 196 MPV (7.4 - 10.4 FL) 9.4 Gran % (42.2 - 75.2 %) 76.3 H Lymphocytes % (20.5 - 51.1 %) 14.7 L Monocytes % (1.7 - 9.3 %) 8.3 Eosinophils % (0 - 5 %) 0.3 Basophils % (0.0 - 2.0 %) 0.4 Absolute Granulocytes (1.4 - 6.5 /CUMM) 9.3 H Absolute Lymphocytes (1.2 - 3.4 /CUMM) 1.8 Absolute Monocytes (0.10 - 0.60 /CUMM) 1.0 H Absolute Eosinophils (0.0 - 0.7 /CUMM) 0 Absolute Basophils (0.0 - 0.2 /CUMM) 0.1 Toxicology Urine Opiates Screen (>2000 NG/ML) 163 Methadone Screen (>300 NG/ML) < 40 Barbiturate Screen (>200 NG/ML) < 60 Ur Phencyclidine Scrn (>25 NG/ML) < 6.00 Amphetamines Screen (>1000 NG/ML) < 100 U Benzodiazepines Scrn (>200 NG/ML) < 85 Urine Cocaine Screen (>300 NG/ML) < 50 Urine Cannabis Screen (>50 NG/ML) < 5.00 Urines Urine Color (YEL,AMB,STR) YEL Urine Clarity (CLEAR) CLEAR Urine pH (5.0 - 8.0) 7.0 Ur Specific Randolph (1.001 - 1.035) 1.015 Urine Protein (NEG,<30 MG/DL) NEG Urine Ketones (NEG) 40 H Urine Nitrite (NEG) NEG Urine Bilirubin (NEG) NEG Urine Urobilinogen (0.1 - 1.0 EU/dl) 0.2 Ur Leukocyte Esterase (NEG) NEG Ur Microscopic EXAM NOT REQUIRED Urine Hemoglobin (NEG) NEG Urine Glucose (N MG/DL) NEG 10/13 10/13 10/12 0125 0125 1950 Chemistry Sodium (137 - 145 mmol/L) 143 140 Potassium (3.5 - 5.1 mmol/L) 3.8 3.9 Chloride (98 - 107 mmol/L) 106 105 Carbon Dioxide (22 - 30 mmol/L) 21 L 22 Anion Gap (5 - 16) 16 13 BUN (7 - 17 mg/dL) 18 H 21 H Creatinine (0.5 - 1.0 mg/dL) 0.8 0.9 Estimated GFR (>60 ml/min) > 60 > 60 BUN/Creatinine Ratio (7 - 25 %) 22.5 23.3 Glucose (65 - 99 mg/dL) 138 H Calcium (8.4 - 10.2 mg/dL) 9.7 Total Bilirubin (0.2 - 1.3 mg/dL) 0.7 AST (14 - 36 U/L) 22 ALT (9 - 52 U/L) 28 Alkaline Phosphatase (<127 U/L) 63 Troponin I (< 0.11 ng/ml) < 0.01 < 0.01 Total Protein (6.3 - 8.2 g/dL) 7.7 Albumin (3.5 - 5.0 g/dL) 4.6 Globulin (1.9 - 4.2 gm/dL) 3.1 Albumin/Globulin Ratio (1.1 - 2.2 %) 1.5 Hematology CBC w Diff NO MAN DIFF REQ WBC (4.8 - 10.8 /CUMM) 11.7 H RBC (4.20 - 5.40 /CUMM) 5.21 Hgb (12.0 - 16.0 G/DL) 15.6 Hct (37 - 47 %) 46.4 MCV (81.0 - 99.0 FL) 89.1 MCH (27.0 - 31.0 PG) 29.9 MCHC (33.0 - 37.0 G/DL) 33.6 RDW (11.5 - 14.5 %) 13.4 Plt Count (130 - 400 /CUMM) 202 MPV (7.4 - 10.4 FL) 10.5 H Gran % (42.2 - 75.2 %) 80.8 H Lymphocytes % (20.5 - 51.1 %) 12.2 L Monocytes % (1.7 - 9.3 %) 6.2 Eosinophils % (0 - 5 %) 0.5 Basophils % (0.0 - 2.0 %) 0.3 Absolute Granulocytes (1.4 - 6.5 /CUMM) 9.5 H Absolute Lymphocytes (1.2 - 3.4 /CUMM) 1.4 Absolute Monocytes (0.10 - 0.60 /CUMM) 0.7 H Absolute Eosinophils (0.0 - 0.7 /CUMM) 0.1 Absolute Basophils (0.0 - 0.2 /CUMM) 0 MRI of the brain without contrast was obtained using routine sequences. FINDINGS: A small area of chronic cortical infarction and gliosis at the left frontoparietal junction is unchanged. Minimal additional chronic microvascular ischemic changes are seen in the supratentorial white matter. No focal reduced diffusion is seen to suggest acute or subacute cerebral ischemia. No intracranial mass, intracerebral edema, intra-axial blood products, midline shift, or extra-axial collection is visualized. The ventricles and sulcal spaces appear normal. Normal arterial and venous vascular flow voids are present. The paranasal sinuses are well aerated. IMPRESSION: No imaging evidence of acute cerebral ischemia or hemorrhage. Imaging/Other Studies: MRI of the brain without contrast was obtained using routine sequences. FINDINGS: A small area of chronic cortical infarction and gliosis at the left frontoparietal junction is unchanged. Minimal additional chronic microvascular ischemic changes are seen in the supratentorial white matter. No focal reduced diffusion is seen to suggest acute or subacute cerebral ischemia. No intracranial mass, intracerebral edema, intra-axial blood products, midline shift, or extra-axial collection is visualized. The ventricles and sulcal spaces appear normal. Normal arterial and venous vascular flow voids are present. The paranasal sinuses are well aerated. IMPRESSION: No imaging evidence of acute cerebral ischemia or hemorrhage. CTA No evidence of a hemodynamically significant stenosis involving the internal carotid arteries. CT HEAD: No change of the area of low attenuation with adjacent linear cortical calcifications involving the left parietal cortex. This is consistent with a old infarct. There is no acute intracranial abnormality. No intracranial mass, hemorrhage, or midline shift is visualized. The ventricles and sulci are age-appropriate. No extra-axial collections are identified. There is atherosclerotic vascular wall calcification of the internal carotid arteries bilaterally. The paranasal sinuses and mastoid air cells are well aerated. Assessment/Plan Assessment: Toxic metabolic encephalopathy with severe headache but unremarkable CT/MRI Diff diagnosis includes medication overdose, RN RADIOLOGY vasculitis (MRI can be normal) cannot completely exclude RN RADIOLOGY infection Recommendations: LP send Baclofen level from this am or yesterday bloods if possible ESR, ANDREI ANCA, RF, Lyme titer RPR Consult Acknowledgment - Thank you for your consult request.
[2017-10-13 22:22] VITALS: BP 118/88
[2017-10-14 07:18] VITALS: BP 84/60
--- NOTE | 2017-10-14 08:17 | PN- Housestaff ---
Pawan PATTON,Abdiaziz 10/14/17 0817: Subjective Follow-up For: ams Subjective: Saw pt at bedside this AM. She has huge improvement in mental status. She is AOX3 and able to remember all events of yesterday. She does complain of some residual pain in her occiput and her neck. Seemed to improve with tylenol. Over night she did have one episode of hypotension with BP 84/60. She got one bolus of 500cc and her BP went to 92/66. She is asymptomatic at this time. However, yesterday when OT attempted to work with her she became significantly dizzy when she got up. She is unclear on her med regimen adn I have asked her friends to bring her med bottles so I can better reconcile them. Review of Systems Constitutional: Denies: see HPI, fever, weakness. EENTM: Reports: no symptoms. Cardiovascular: Denies: chest pain, palpitations. Respiratory: Denies: cough, short of breath. Gastrointestinal: Reports: nausea. Denies: abdominal pain, vomiting. Genitourinary: Reports: no symptoms. Musculoskeletal: Reports: no symptoms. Objective Last 24 Hrs of Vital Signs/I&O Vital Signs Date Time Temp Pulse Resp B/P B/P Pulse O2 O2 Flow FiO2 Mean Ox Delivery Rate 10/14 0732 58 90/60 10/14 0718 99.3 67 20 84/60 93 Room Air 10/13 2222 98.1 66 20 118/88 96 Room Air 10/13 2122 98.4 74 18 120/76 97 Room Air 10/13 1913 96 Room Air 10/13 191 98.5 74 20 121/74 96 Room Air 10/13 1601 98.6 71 18 119/73 10/13 1600 98.6 71 18 119/73 98 Room Air 10/13 1236 97.4 63 18 137/98 97 Intake & Output 10/14 1600 10/14 0800 10/14 0000 Intake Total 520 Output Total 450 Balance 70 Intake, IV 400 Intake, Oral 120 Output, Urine 450 Patient 65.317 kg Weight Weight Bed scale Measurement Method Physical Exam General Appearance: Alert, Oriented X3, Cooperative, No Acute Distress Skin: No Significant Lesion HEENT: Atraumatic, PERRLA, EOMI, Mucous Membr. moist/pink Neck: Supple Cardiovascular: Regular Rate, Normal S1, Normal S2, No Murmurs Lungs: Normal Air Movement Abdomen: Soft, No Tenderness Current Medications: Current Medications Sig/Errol Start time Last Medication Dose Route Stop Time Status Admin Acetaminophen 650 MG ONCE ONE 10/13 223 DC 10/13 PO 10/13 223 2244 Amlodipine Besylate 0 .STK-MED ONE 10/13 1553 DC PO Amlodipine Besylate 2.5 MG DAILY 10/13 1537 AC 10/14 PO 0732 Dextrose/Sodium 1,000 ML Q20H 10/13 1545 AC 10/13 Chloride IV 10/14 1144 1601 Enoxaparin Sodium 40 MG DAILY 10/14 0900 AC 10/14 SC 0732 Ondansetron HCl 4 MG Q6P PRN 10/13 223 AC 10/14 IV 0606 Ondansetron HCl 4 MG Q6 10/13 2130 DC 10/13 IV 10/14 0700 2122 Ondansetron HCl 0 .STK-MED ONE 10/13 2121 DC .ROUTE Sodium Chloride 500 ML BOLUS ONE 10/14 0545 DC 10/14 IV 10/14 0644 0649 Last 24 Hrs of Lab/Guy Results Last 24 Hrs of Labs/Mics: Laboratory Tests 10/14/17 0620: Anion Gap 12, Estimated GFR 54 L, BUN/Creatinine Ratio 28.0 H, CBC w Diff NO MAN DIFF REQ, RBC 4.98, MCV 88.9, MCH 30.4, MCHC 34.2, RDW 13.4, MPV 10.2, Gran % 72.9, Lymphocytes % 17.8 L, Monocytes % 8.3, Eosinophils % 0.4, Basophils % 0.6, Absolute Granulocytes 8.5 H, Absolute Lymphocytes 2.1, Absolute Monocytes 1.0 H, Absolute Eosinophils 0.1, Absolute Basophils 0.1, ANCA Pending, Ref Lab Test Result Pending Microbiology 10/13 1216 BLOOD: Blood Culture - RECD 10/13 1002 URINE ROUT: Urine Culture - COLB 10/13 1002 BLOOD: Blood Culture - CAN Cancelled: SPECIMEN NOT RECEIVED IN LABORATORY Assessment/Plan Assessment: This a 77 yo female with PMH of HTN, HLD, prior CVA, brain aneurysm s/p gamma knife who comes in for CC AMS. In ED she was agitateda incapable of following any commands except repeating "Oh my God." Initial differential in this pt includes intracranial hemorrhage, CVA (given prev hx CVA), carotid/vertebral artery dissection but CT/CTA not indicative of either. Other thoughts include Baclofen toxicity which is associated with encephalopathy and particularly exacerbated by benzodiazepines, PRES due to baclofen, ICP, infectious etiology including meningitis/encephalitis. At this time no clear etiology has emerged as such we will continue to monitor on telemetry for further evaluation. PLAN 1. AMS: CTA head and neck, MRI clear. EEG yesterday markedly abnormal without evidence of epileptiform activity. Pt does endorse remote hx of seizures for which she states she no longer needed medications. Negative Utox. Given her hx of previous CVA there is concern for another ischemic event. Hemorrhage ruled out by CT head. Pt is much improved today. Her mental status is back to baseline. Will defer LP as pt's mental status is back to nml. ESR WNL. * Follow up neuro consult * passed swallow eval * Con't Telemetry * asa * statin * ANDREI/ANCA/RPR/LYME/RF pending 2. HTN:Was hypotensive this AM. Responded to fluids. * Hold BP meds 3. Urinary retention: Pt had c/o abdominal pain yesterday which seemed to relieve after straight cath. Possible medication related urinary retention. * Straight cath protocol 4. Leukocytosis: Unsure of etiology. Pt has been afebrile. However,will proceed with infectious work up. * BCX ngtd * UCX ngtd * XRY chest nml fc chem dvt ppx npo Problem List: 1. Altered mental status Pain Ratin Pain Location: none Pain Goal: Remain pain free Pain Plan: none Tomorrow's Labs & Rationales: cbc dilip TianIssa 10/14/17 1131: Attending MD Review Statement Attending Statement Attending MD Statement: examined this patient, discuss w/resident/PA/[employer], agreed w/resident/PA/[employer], discussed with family, reviewed EMR data (avail), discussed with nursing, discussed with case mgmt, reviewed images, amended to note Attending Assessment/Plan: Patient is aaox 3 oriented. Patient had extensive investigation including CTA head/neck so far which has resulted negative for acute pathology. Labs noted. Vital stable. Patient took baclofen at high doses given recently. Recommend to Discontinue baclofen. EEG with possible toxic metabolic encepahlaopthy likely medication induced. PT consult. Anticipate dc planning soon.
[2017-10-14 08:20] LABS: ABSOLUTE BASOPHIL COUNT 0.1 /CUMM (0.0-0.2); ABSOLUTE EOSINOPHIL COUNT 0.1 /CUMM (0.0-0.7); ABSOLUTE GRANULOCYTE CT 8.5 /CUMM (1.4-6.5); ABSOLUTE LYMPH COUNT 2.1 /CUMM (1.2-3.4); BASOPHIL % 0.6 % (0.0-2.0); EOSINOPHIL % 0.4 % (0-5); GRANULOCYTE % 72.9 % (42.2-75.2); HEMATOCRIT 44.3 % (37-47); MEAN CORPUSCULAR HGB 30.4 PG (27.0-31.0); MEAN CORPUSCULAR HGB CONC 34.2 G/DL (33.0-37.0); MEAN CORPUSCULAR VOLUME 88.9 FL (81.0-99.0); MEAN PLATELET VOLUME 10.2 FL (7.4-10.4); PLATELET COUNT 194 /CUMM (130-400); RBC DISTRIBUTION WIDTH 13.4 % (11.5-14.5); RED BLOOD CELL CT 4.98 /CUMM (4.20-5.40); WHITE BLOOD CELL COUNT 11.7 /CUMM (4.8-10.8)
--- NOTE | 2017-10-14 14:09 | Patient Discharge Instructions ---
See Addendum Discharge Instructions General Discharge Information You were seen/treated for: Encephalopathy likely secondary to medication Special Instructions: 1. please follow up with Dr. Partida in one month 2. Please avoid Baclofen in future 3. Please follow up with PCP in one week 4. Continue your medications as prescribed Diet Continue normal diet: Yes Activity Full Activity/No Limits: Yes Acute Coronary Syndrome Inclusion Criteria At DC or during hospital stay patient has or had the following: ACS DIAGNOSIS No Discharge Core Measures Meds if any: Prescribed or Continued at Discharge Meds if any: NOT Prescribed or Continued at Discharge Congestive Heart Failure Inclusion Criteria At DC or during hospital stay patient has or had the following: CHF DIAGNOSIS No Discharge Core Measures Meds if any: Prescribed or Continued at Discharge Meds if any: NOT Prescribed or Continued at Discharge Cerebrovascular accident Inclusion Criteria At DC or during hospital stay patient has or had the following: CVA/TIA Diagnosis No Discharge Core Measures Meds if any: Prescribed or Continued at Discharge Meds if any: NOT Prescribed or Continued at Discharge Venous thromboembolism Inclusion Criteria VTE Diagnosis No VTE Type NONE VTE Confirmed by (Test) NONE Discharge Core Measures - Per Current guidelines, there needs to be overlap - treatment for the first 5 days of Warfarin therapy. - If discharged on Warfarin prior to 5 days of - overlap therapy, the patient will need to be - assessed for post discharge needs including - *Post discharge parental anticoagulation - *Warfarin and/or parental anticoagulation education - *Follow up date to check INR post discharge At least 5 days overlap therapy as Inpatient No Meds if any: Prescribed or Continued at Discharge Note: Overlap Therapy is Warfarin and Anticoagulant Meds if any: NOT Prescribed or Continued at Discharge
[2017-10-14 14:51] VITALS: BP 100/72
[2017-10-14 21:25] VITALS: BP 124/80
--- NOTE | 2017-10-15 04:58 | Event Note ---
Event Note Event Note: Situation: Nurse called around 5am that patient is unable to move her right arm/ leg and has numbness on right side of face. Brief: Patient was examined. Her neurological exam was unremarkable. The patient does have significant pain in her right hand which is aggravated with movement. She describes it as a throbbing pain along with ache in the back of her head. A/R: The patient's symptoms appear to be more musculoskeletal in nature. She was given ibuprofen. Imaging of her right hand and left foot. Will keep following the patient. Further management per primary team
[2017-10-15 07:39] LABS: ABSOLUTE BASOPHIL COUNT 0.1 /CUMM (0.0-0.2); ABSOLUTE EOSINOPHIL COUNT 0.1 /CUMM (0.0-0.7); ABSOLUTE GRANULOCYTE CT 13.3 /CUMM (1.4-6.5); ABSOLUTE MONOCYTE COUNT 1.6 /CUMM (0.10-0.60); BASOPHIL % 0.3 % (0.0-2.0); EOSINOPHIL % 0.5 % (0-5); GRANULOCYTE % 82.9 % (42.2-75.2); HEMATOCRIT 42.1 % (37-47); MEAN CORPUSCULAR HGB 30.4 PG (27.0-31.0); MEAN CORPUSCULAR HGB CONC 34.2 G/DL (33.0-37.0); MEAN CORPUSCULAR VOLUME 88.7 FL (81.0-99.0); MEAN PLATELET VOLUME 10.2 FL (7.4-10.4); PLATELET COUNT 186 /CUMM (130-400); RBC DISTRIBUTION WIDTH 13.5 % (11.5-14.5); RED BLOOD CELL CT 4.75 /CUMM (4.20-5.40)
--- NOTE | 2017-10-15 09:11 | PN- Housestaff ---
Pawan PATTON,Abdiaziz 10/15/17 0911: Subjective Follow-up For: ams Subjective: Overnight, pt had an episode inabiltiy to move her r. hand and tingling in her l. leg. See event note for further details. Otherwise pt was very pleasant this morning. AOX3. After much discussion we decided to pursue an LP. Review of Systems Constitutional: Denies: chills, fever, weakness. EENTM: Reports: no symptoms. Cardiovascular: Denies: chest pain, palpitations. Respiratory: Denies: cough, wheezing. Gastrointestinal: Denies: bloating, diarrhea, nausea, vomiting. Genitourinary: Reports: no symptoms. Musculoskeletal: Reports: joint pain, muscle pain, muscle stiffness. Skin: Reports: no symptoms. Objective Last 24 Hrs of Vital Signs/I&O Vital Signs Date Time Temp Pulse Resp B/P B/P Pulse O2 O2 Flow FiO2 Mean Ox Delivery Rate 10/15 1417 98.9 73 20 140/64 94 10/14 2125 97.6 72 18 124/80 94 Intake & Output 10/15 1600 10/15 0800 10/15 0000 Intake Total 400 275 400 Output Total 250 325 475 Balance 150 -50 -75 Intake, Oral 400 275 400 Output, Urine 250 325 475 Patient 67.585 kg Weight Physical Exam General Appearance: Alert, Oriented X3, Cooperative, No Acute Distress Skin: No Rashes, No Significant Lesion HEENT: Atraumatic, PERRLA, EOMI Neck: Supple Cardiovascular: Regular Rate, Normal S1, Normal S2, No Murmurs Lungs: Normal Air Movement Abdomen: Soft, No Tenderness Neurological: Normal Speech, Cranial Nerves 3-12 NL, r. hand with increased tenderness to palpation. unable to entirely flex at PIP and DIP. DIminished strength.all extremeties have nml sensation. nml strength in bilat LE. Extremities: see above Current Medications: Current Medications Sig/Errol Start time Last Medication Dose Route Stop Time Status Admin Acetaminophen 650 MG ONCE ONE 10/15 0445 DC PO 10/15 0446 Aspirin 81 MG DAILY 10/14 1354 AC 10/15 PO 0730 Atorvastatin Calcium 40 MG 1700 10/14 1700 AC 10/14 PO 1622 Docusate Sodium 100 MG DAILY NEEDED PRN 10/14 2215 AC 10/15 PO 0632 Enoxaparin Sodium 40 MG DAILY 10/14 0900 AC 10/15 SC 0730 Ibuprofen 600 MG ONCE ONE 10/15 0500 DC 10/15 PO 10/15 0501 0638 Lidocaine 0 .STK-MED ONE 10/15 1454 DC .ROUTE Ondansetron HCl 4 MG Q6P PRN 10/13 2230 10/14 IV 0606 Patient Medication 1 ED ONE ONE 10/14 1930 DC Teaching ED 10/14 1930 Polyethylene Glycol 17 GM DAILY 10/15 09 10/15 PO 0730 Senna 187 MG AT BEDTIME NEED.. 10/14 221 10/15 PO 0632 Last 24 Hrs of Lab/Guy Results Last 24 Hrs of Labs/Mics: Laboratory Tests 10/15/17 1515: CSF Glucose 78 H, CSF Total Protein 50 10/15/17 1515: CSF WBC 3, CSF RBC 7 H, CSF Comment 10/15/17 0610: Anion Gap 13, Estimated GFR > 60, BUN/Creatinine Ratio 26.3 H, CBC w Diff NO MAN DIFF REQ, RBC 4.75, MCV 88.7, MCH 30.4, MCHC 34.2, RDW 13.5, MPV 10.2, Gran % 82.9 H, Lymphocytes % 6.5 L, Monocytes % 9.8 H, Eosinophils % 0.5, Basophils % 0.3, Absolute Granulocytes 13.3 H, Absolute Lymphocytes 1.0 L, Absolute Monocytes 1.6 H, Absolute Eosinophils 0.1, Absolute Basophils 0.1 Microbiology 10/15 1515 CENT N S: CSF Culture - RECD 10/15 1515 CENT N S: Gram Stain - RECD 10/15 1442 BODY FLUID: Body Fluid Culture - CAN Cancelled: OE ERROR 10/15 144 BODY FLUID: Gram Stain - CAN Cancelled: OE ERROR Assessment/Plan Assessment: This a 77 yo female with PMH of HTN, HLD, prior CVA, brain aneurysm s/p gamma knife who comes in for CC AMS. In ED she was agitateda incapable of following any commands except repeating "Oh my God." Initial differential in this pt includes intracranial hemorrhage, CVA (given prev hx CVA), carotid/vertebral artery dissection but CT/CTA not indicative of either. Other thoughts include Baclofen toxicity which is associated with encephalopathy and particularly exacerbated by benzodiazepines, PRES due to baclofen, ICP, infectious etiology including meningitis/encephalitis. At this time no clear etiology has emerged as such we will continue to monitor on telemetry for further evaluation. PLAN 1. AMS: CTA head and neck, MRI clear. EEG yesterday markedly abnormal without evidence of epileptiform activity. Pt does endorse remote hx of seizures for which she states she no longer needed medications. Negative Utox. Given her hx of previous CVA there is concern for another ischemic event. Hemorrhage ruled out by CT head. Pt is much improved today. Her mental status is back to baseline. Given the acute pain and inability to move her r. hand will proceed with LP today as it will not be available over the weekend. * Follow up neuro consult * passed swallow eval * Con't Telemetry * asa * statin * ANDREI/ANCA/RPR/LYME/RF pending * Follow LP * Follow Baclofen lvl * cxr of r. arm * cxr of l. foot * spine CT 2. HTN: * Holding BP meds 3. Urinary retention: Pt had c/o abdominal pain yesterday which seemed to relieve after straight cath. Possible medication related urinary retention. * Straight cath protocol 4. Leukocytosis: Unsure of etiology but went up to 16 today. Pt has been afebrile. However,will proceed with infectious work up. * BCX ngtd * UCX ngtd * LP * XRY chest nml Problem List: 1. Numbness and tingling of right face 2. Altered mental status Pain Ratin Pain Location: none Pain Goal: Remain pain free Pain Plan: none Tomorrow's Labs & Rationales: none Issa Tian 10/15/17 1109: Attending MD Review Statement Attending Statement Attending MD Statement: examined this patient, discuss w/resident/PA/SYSTEMS PROJECT MANAGER, agreed w/resident/PA/SYSTEMS PROJECT MANAGER, discussed with family, reviewed EMR data (avail), discussed with nursing, discussed with case mgmt, reviewed images, amended to note Attending Assessment/Plan: Patient is aaox 3 oriented. Patient had extensive investigation including CTA head/neck so far which has resulted negative for acute pathology. Labs with persistent leukocytosis. Vital stable. Afebrile. Overnight events: Patient had tingling/numbness in right hand and left leg. She does have pain while moving her wrist and decreased range of motion of her fingers. Patient took baclofen at high doses given recently. Discontinued baclofen. EEG with possible toxic metabolic encepahlaopthy likely medication induced. Obtain imaging of neck r/o cervical pathology. Consider LP. F/u neurology. PT consult. Anticipate dc based on imaging, repeat cbc and neurology.
[2017-10-15 14:17] VITALS: BP 140/64
--- NOTE | 2017-10-15 14:39 | RADIOLOGY REPORT ---
EXAMINATION: XR HAND, RIGHT XR FOOT, LEFT CLINICAL INFORMATION: 77-year-old female with right hand and left foot pain. COMPARISON: None TECHNIQUE: 2 views of the right hand and 3 views of the left foot were obtained. FINDINGS: Right hand: Mild diffuse osteopenia is noted involving all the visualized bones. The bony alignment is intact. Subchondral nonspecific cyst is noted within the distal part of the scaphoid. Mild degenerative osteoarthrosis is noted at the Triscaphe joint and the first carpometacarpal joint and moderate to severe osteoarthrosis at the interphalangeal joint of the right thumb. Chondrocalcinosis is seen at the TFCC. Left foot: Healing fracture is present at the mid septum of the 3rd metatarsal. Moderate to severe hallux valgus deformity is noted. Subluxation is noted at the 2nd MTP joint. Accessory ossicle is noted around the cuboid. Subtle calcifications are noted along the plantar surface of the calcaneus. IMPRESSION: 1. No radiographic evidence of any fracture, dislocation is seen within the right hand. 2. Healing fracture is present involving the mid shaft of the left 3rd metatarsal.
--- NOTE | 2017-10-15 14:55 | CT SCAN REPORT ---
EXAMINATION: CT CERVICAL SPINE WITHOUT CONTRAST CLINICAL INFORMATION: 77-year-old female with pain and decreased mobility of the right hand. COMPARISON: CT of the cervical spine done on 10/12/2017. TECHNIQUE: Multidetector helical imaging was performed in the axial plane with generation of coronal and sagittal reformatted images. DLP: 305.0 mGy-cm FINDINGS: There is reversal of mid to lower cervical lordosis present. There is a grade 1 anterolisthesis of C3 over C4 and C4 over C5 present. The height of the cervical vertebrae is well maintained. Significant facet joint arthritic changes are noted bilaterally, predominantly at the upper cervical spine. Moderate multilevel degenerative spondylosis related changes are noted at C3-C4, C4-C5, C5-C6 and C6-C7. SPINAL LEVELS: C2-C3: Mild right neural foraminal narrowing is noted. The central spinal canal, the left-sided foramina. Widely patent. C3-C4: Mild left neural foraminal narrowing is noted. The central spinal canal and the right neural foramina appear patent. C4-C5: Mild bilateral neural foraminal narrowing is present. The central spinal canal is widely patent. C5-C6: Moderate to severe right neural foraminal narrowing is noted. The left neural foramen and the central spinal canal appear widely patent. C6-C7: Moderate to severe right neural foraminal, mild to moderate left neural foraminal narrowing are noted. The central spinal canal is widely patent. C7-T1: The central spinal canal and both neural foramina's are widely patent. IMPRESSION: Multilevel degenerative spondylosis related changes are present showing multilevel bilateral neural foraminal narrowing (right greater than left).
--- NOTE | 2017-10-15 16:36 | INTERVENTIONAL RADIOLOGY RPT ---
CLINICAL HISTORY: The patient is a 77-year-old female with possible encephalitis, who presents to interventional radiology for fluoroscopically-guided lumbar puncture. PROCEDURES: Fluoroscopically-guided lumbar puncture. PHYSICIANS: Dr. Usama Amin (attending). MEDICATIONS: 8 mL 1% lidocaine SQ. COMPLICATIONS: None. ESTIMATED BLOOD LOSS: <5 mL. SPECIMENS: 8 mL clear CSF. Specimens were appropriately labeled and sent to the laboratory for evaluation with request to inform the referring physician of results. FLUOROSCOPY TIME: 1.2 minutes. Number of images: 3 PROCEDURE NOTE: Informed consent was obtained from the patient prior to the procedure. During this process, the procedure and potential alternatives were explained along with the intended outcome and benefits. The risks of the procedure, including the possibility of an unsuccessful procedure, as well as the risk of not doing the procedure, were discussed. The patient was given the opportunity to ask questions regarding the procedure and appeared competent to make decisions. A signed consent form documenting this discussion was placed in the medical record. A time-out procedure was performed. Appropriate pre-procedure medical history and imaging studies were reviewed. The patient was placed prone on the fluoroscopy table. Fluoroscopic images of the lumbar spine were obtained to localize the L4-L5 level. The patient's back was prepped and draped in the standard sterile fashion. 8 mL of 1% lidocaine was used to obtain local anesthesia the skin and deeper tissues. A 22-gauge Sprotte needle was then passed through the introducer needle into the spinal canal, until CSF flowed. CSF was collected and sent for requested laboratory analysis. The spinal needle was removed and a sterile dressing applied. FINDINGS: 1. Clear CSF. 2. Multilevel degenerative changes in the lumbar spine. IMPRESSION: Fluoroscopic-guided lumbar puncture as described. PLAN: The patient was stable after the procedure and was transferred to the interventional recovery area. The patient will be transferred back to her medical room.
--- NOTE | 2017-10-15 19:25 | ECHOCARDIOGRAM REPORT ---
WESTLEY HERNANDEZ Age: 77 : 1940 Gender: F Exam Date: 10/13/2017 19:20 Exam Location: ER Ht (in): 63 Wt (lb): 163 BSA: 1.84 BP: 164 / 82 Ordering Physician: Zaira Silver MD Referring Physician: Zaira Silver MD Technologist: Fiorella Mckeon RDCS Room Number: [id number] Indications: STROKE Rhythm: Sinus Technical Quality: Poor FINDINGS Left Ventricle Small left ventricular cavity. Normal left ventricular wall thickness. No obvious regional wall motion abnormalities. Normal left ventricular ejection fraction visually estimated at 60%. Abnormal relaxation filling pattern of the left ventricle for age (stage 1 diastolic dysfunction). Increased resting left ventricular outflow tract velocity (2.1 m/s). Right Ventricle Normal right ventricular size and function. Right Atrium Normal right atrial size. Left Atrium Normal left atrial size. Mitral Valve Mild mitral annular calcification. Mitral valve mildly thickened. No mitral regurgitation. Aortic Valve Trileaflet aortic valve. Diffuse mild thickening of the aortic valve cusps with reduced excursion. Mild aortic stenosis. No aortic regurgitation. Tricuspid Valve Structurally normal tricuspid valve. Trace tricuspid regurgitation. No evidence of pulmonary hypertension. Pulmonic Valve Pulmonic valve not well visualized, grossly normal. Trace pulmonic regurgitation. Pericardium No pericardial effusion. Great Vessels Normal size aortic root. Normal size inferior vena cava. CONCLUSIONS Small left ventricular cavity. Normal left ventricular wall thickness. Normal left ventricular ejection fraction visually estimated at 60%. Abnormal relaxation filling pattern of the left ventricle for age (stage 1 diastolic dysfunction). Increased resting left ventricular outflow tract velocity (2.1 m/s). Normal right ventricular size and function. Normal atrial size. Mild aortic stenosis. Trace tricuspid regurgitation. No evidence of pulmonary hypertension. Trace pulmonic regurgitation. Ramy Alcaraz M.D. (Electronically Signed) Final Date: 15 October 2017 19:24 MEASUREMENTS (Male / Female) Normal Values 2D ECHO LV Diastolic Diameter PLAX 1.9 cm 4.2 - 5.9 / 3.9 - 5.3 cm LV Systolic Diameter PLAX 1.3 cm 2.1 - 4.0 cm LV Fractional Shortening PLAX 31.6 % 25 - 46 % LV Ejection Fraction 2D Teich 62.8 % IVS Diastolic Thickness 1.0 cm LVPW Diastolic Thickness 0.7 cm LV Relative Wall Thickness 0.9 RV Internal Dim ED PLAX 2.2 cm 1.9 - 3.8 cm LVOT Diameter 1.8 cm Aortic Root Diameter 2.9 cm LA Systolic Diameter LX 3.2 cm 3.0 - 4.0 / 2.7 - 3.8 cm LA Volume 22.0 cm 18 - 58 / 22 - 52 cm Ascending Aorta Diameter 2.8 cm DOPPLER AV Peak Velocity 240.0 cm/s AV Peak Gradient 23.0 mmHg AV Mean Velocity 177.0 cm/s AV Mean Gradient 14.0 mmHg AV Velocity Time Integral 51.1 cm LVOT Peak Velocity 214.0 cm/s LVOT Peak Gradient 18.3 mmHg LVOT Mean Velocity 158.0 cm/s LVOT Mean Gradient 12.0 mmHg LVOT Velocity Time Integral 47.4 cm LVOT Stroke Volume 120.6 cm AV Area Cont Eq vti 2.4 cm AV Area Cont Eq pk 2.3 cm MV Peak Velocity 102.0 cm/s MV Peak Gradient 4.2 mmHg MV Mean Velocity 56.9 cm/s MV Mean Gradient 2.0 mmHg Mitral E Point Velocity 58.7 cm/s Mitral A Point Velocity 102.0 cm/s Mitral E to A Ratio 0.6 MV PHT Velocity 86.9 cm/s MV Deceleration [place] 304.0 cm/s MV Pressure Half Time 85.8 ms MV Area PHT 2.6 cm MV Deceleration Time 440.0 ms TR Peak Velocity 126.0 cm/s TR Peak Gradient 6.4 mmHg Right Atrial Pressure 5.0 mmHg Pulmonary Artery Systolic Pressu 11.4 mmHg Right Ventricular Systolic Press 11.4 mmHg PV Peak Velocity 146.0 cm/s PV Peak Gradient 8.5 mmHg PV Mean Velocity 98.2 cm/s PV Mean Gradient 4.0 mmHg PV Velocity Time Integral 29.0 cm LV E' Lateral Velocity 4.9 cm/s Mitral E to LV E' Lateral Ratio 12.1 LV E' Septal Velocity 3.4 cm/s Mitral E to LV E' Septal Ratio 17.2
[2017-10-15 22:40] VITALS: BP 96/58
[2017-10-16 06:57] VITALS: BP 90/56
[2017-10-16 08:22] LABS: ABSOLUTE BASOPHIL COUNT 0 /CUMM (0.0-0.2); ABSOLUTE EOSINOPHIL COUNT 0.1 /CUMM (0.0-0.7); ABSOLUTE GRANULOCYTE CT 8.7 /CUMM (1.4-6.5); ABSOLUTE LYMPH COUNT 1.6 /CUMM (1.2-3.4); ABSOLUTE MONOCYTE COUNT 1.2 /CUMM (0.10-0.60); BASOPHIL % 0.4 % (0.0-2.0); EOSINOPHIL % 0.7 % (0-5); HEMATOCRIT 39.1 % (37-47); MEAN CORPUSCULAR HGB 30.1 PG (27.0-31.0); MEAN CORPUSCULAR VOLUME 88.3 FL (81.0-99.0); MEAN PLATELET VOLUME 10.5 FL (7.4-10.4); PLATELET COUNT 163 /CUMM (130-400); RBC DISTRIBUTION WIDTH 13.9 % (11.5-14.5); RED BLOOD CELL CT 4.43 /CUMM (4.20-5.40); WHITE BLOOD CELL COUNT 11.6 /CUMM (4.8-10.8)
--- NOTE | 2017-10-16 08:23 | Event Note ---
Event Note Event Note: I was paged by the nurse at around 11 PM that patient is having right arm pain. Patient was examined-conscious, oriented 3. Complaints of right arm pain of 6 x 10 in severity with no radiation. Not associated with numbness, tingling sensation or neck pain. Strength 3 x 5 in the right arm. Sensation intact. Patient symptom appears to be more of a muscular skeletal in nature. We will order Motrin for the same. We will keep following the patient.
--- NOTE | 2017-10-16 08:49 | PN- Housestaff ---
Nayeli PATTON,Benoit 10/16/17 0848: Subjective Follow-up For: AMS Tele-Events Since Last Visit: Normal sinus rhythm HR in the 60s Subjective: Patient was seen and examined at bedside. Overnight she had an episode of severe right arm pain, she was evaluated by the overnight team, and her pain was controlled with Motrin. She currently has no complaints other than right hand pain and limited right active range of motion secondary to pain. She denies any chest pain, palpitations, nausea, vomiting, fever, chills. Review of Systems Constitutional: Reports: no symptoms. EENTM: Reports: no symptoms. Cardiovascular: Reports: no symptoms. Respiratory: Reports: no symptoms. Gastrointestinal: Reports: no symptoms. Genitourinary: Reports: no symptoms. Musculoskeletal: Reports: see HPI, joint pain, joint swelling. Objective Last 24 Hrs of Vital Signs/I&O Vital Signs Date Time Temp Pulse Resp B/P B/P Pulse O2 O2 Flow FiO2 Mean Ox Delivery Rate 10/16 0657 98.7 67 18 90/56 96 10/15 2240 99.5 82 22 96/58 94 10/15 1417 98.9 73 20 140/64 94 Intake & Output 10/16 1600 10/16 0800 10/16 0000 Intake Total 240 250 Output Total 200 Balance 240 50 Intake, Oral 240 250 Output, Urine 200 Patient 147 lb Weight Physical Exam General Appearance: Alert, Cooperative, No Acute Distress Skin Temp/Moisture Exam: Warm/Dry Cardiovascular: Regular Rate, Normal S1, Normal S2 Lungs: Clear to Auscultation, Normal Air Movement Abdomen: Normal Bowel Sounds, Soft, No Tenderness Neurological: Normal Speech, Strength at 5/5 X4 Ext, Sensation Intact Extremities: mild swelling and tenderness to palpation of the R hand around the 3rd and 4th MCP joints Current Medications: Current Medications Sig/Errol Start time Last Medication Dose Route Stop Time Status Admin Aspirin 81 MG DAILY 10/14 1354 AC 10/15 PO 0730 Atorvastatin Calcium 40 MG 1700 10/14 1700 AC 10/15 PO 1738 Docusate Sodium 100 MG DAILY NEEDED PRN 10/14 2215 AC 10/16 PO 0608 Enoxaparin Sodium 40 MG DAILY 10/14 0900 AC 10/15 SC 0730 Ibuprofen 600 MG ONCE ONE 10/15 2044 DC 10/15 PO 10/15 Lidocaine 0 .STK-MED ONE 10/15 1454 DC .ROUTE Ondansetron HCl 4 MG Q6P PRN 10/13 2230 10/14 IV 0606 Polyethylene Glycol 17 GM DAILY 10/15 0900 AC 10/15 PO 0730 Senna 187 MG AT BEDTIME NEED.. 10/14 2215 10/16 PO 0608 Last 24 Hrs of Lab/Guy Results Last 24 Hrs of Labs/Mics: Laboratory Tests 10/16/17 0649: Anion Gap 9, Estimated GFR > 60, BUN/Creatinine Ratio 26.7 H, CBC w Diff NO MAN DIFF REQ, RBC 4.43, MCV 88.3, MCH 30.1, MCHC 34.0, RDW 13.9, MPV 10.5 H, Gran % 75.0, Lymphocytes % 13.6 L, Monocytes % 10.3 H, Eosinophils % 0.7, Basophils % 0.4, Absolute Granulocytes 8.7 H, Absolute Lymphocytes 1.6, Absolute Monocytes 1.2 H, Absolute Eosinophils 0.1, Absolute Basophils 0 10/15/17 1515: CSF Glucose 78 H, CSF Total Protein 50 10/15/17 1515: CSF WBC 3, CSF RBC 7 H, CSF Comment Microbiology 10/15 1515 CENT N S: CSF Culture - RES 10/15 1515 CENT N S: Gram Stain - RES 10/15 1442 BODY FLUID: Body Fluid Culture - CAN Cancelled: OE ERROR 10/15 1442 BODY FLUID: Gram Stain - CAN Cancelled: OE ERROR Orders Radiology Findings: CT spine There is reversal of mid to lower cervical lordosis present. There is a grade 1 anterolisthesis of C3 over C4 and C4 over C5 present. The height of the cervical vertebrae is well maintained. Significant facet joint arthritic changes are noted bilaterally, predominantly at the upper cervical spine. Moderate multilevel degenerative spondylosis related changes are noted at C3-C4, C4-C5, C5-C6 and C6-C7. SPINAL LEVELS: C2-C3: Mild right neural foraminal narrowing is noted. The central spinal canal, the left-sided foramina. Widely patent. C3-C4: Mild left neural foraminal narrowing is noted. The central spinal canal and the right neural foramina appear patent. C4-C5: Mild bilateral neural foraminal narrowing is present. The central spinal canal is widely patent. C5-C6: Moderate to severe right neural foraminal narrowing is noted. The left neural foramen and the central spinal canal appear widely patent. C6-C7: Moderate to severe right neural foraminal, mild to moderate left neural foraminal narrowing are noted. The central spinal canal is widely patent. C7-T1: The central spinal canal and both neural foramina's are widely patent. IMPRESSION: Multilevel degenerative spondylosis related changes are present showing multilevel bilateral neural foraminal narrowing (right greater than left). R hand and foot XR Right hand: Mild diffuse osteopenia is noted involving all the visualized bones. The bony alignment is intact. Subchondral nonspecific cyst is noted within the distal part of the scaphoid. Mild degenerative osteoarthrosis is noted at the Triscaphe joint and the first carpometacarpal joint and moderate to severe osteoarthrosis at the interphalangeal joint of the right thumb. Chondrocalcinosis is seen at the TFCC. Left foot: Healing fracture is present at the mid septum of the 3rd metatarsal. Moderate to severe hallux valgus deformity is noted. Subluxation is noted at the 2nd MTP joint. Accessory ossicle is noted around the cuboid. Subtle calcifications are noted along the plantar surface of the calcaneus. IMPRESSION: 1. No radiographic evidence of any fracture, dislocation is seen within the right hand. 2. Healing fracture is present involving the mid shaft of the left 3rd metatarsal. Assessment/Plan Assessment: This a 77 yo female with PMH of HTN, HLD, prior CVA, brain aneurysm s/p gamma knife who comes in for CC AMS. In ED she was agitateda incapable of following any commands except repeating "Oh my God." Initial differential in this pt includes intracranial hemorrhage, CVA (given prev hx CVA), carotid/vertebral artery dissection but CT/CTA not indicative of either. Other thoughts include Baclofen toxicity which is associated with encephalopathy and particularly exacerbated by benzodiazepines, PRES due to baclofen, ICP, infectious etiology including meningitis/encephalitis. At this time no clear etiology has emerged as such we will continue to monitor on telemetry for further evaluation. PLAN 1. AMS: CTA head and neck, MRI clear. EEG yesterday markedly abnormal without evidence of epileptiform activity. Pt does endorse remote hx of seizures for which she states she no longer needed medications. Negative Utox. Given her hx of previous CVA there is concern for another ischemic event. Hemorrhage ruled out by CT head. Pt is much improved today. Her mental status is back to baseline. Given the acute pain and inability to move her r. hand will proceed with LP today as it will not be available over the weekend. * Follow up neuro consult * passed swallow eval * Con't Telemetry * asa * statin * ANDREI/ANCA/RPR pending, RF < 8.6, Lyme 0.22 * CSF lab values within normal limits * Follow Baclofen lvl * Right hand CXR showed no acute osseous malformations, right foot showed healing third metatarsal fracture * CT spine showed degenerative spondylosis 2. HTN: * Holding BP meds 3. Urinary retention: Pt had c/o abdominal pain yesterday which seemed to relieve after straight cath. Possible medication related urinary retention. * Straight cath protocol 4. Leukocytosis: Unsure of etiology but went up to 16 today. Pt has been afebrile. However,will proceed with infectious work up. * BCX ngtd * UCX ngtd * LP * XRY chest nml 5. R hand pain and swelling: Continued pain and swelling of right hand, decreased artificial cherry maker strength. * Reevaluated by physical therapy who is not recommending STR due to inability to safely artificial cherry maker her walker. * Awaiting bed placement and STR, otherwise stable for discharge Diet: Regular diet DT prophylaxis: Lovenox, alps CODE STATUS: Full code Problem List: 1. Altered mental status Pain Ratin Pain Location: R hand Pain Goal: Pain 4 or less Pain Plan: pain pathway Tomorrow's Labs & Rationales: cbc, bep Issa Tian 10/16/17 1304: Attending MD Review Statement Attending Statement Attending MD Statement: examined this patient, discuss w/resident/PA/SALES AND MARKETING VICE PRESIDENT, agreed w/resident/PA/SALES AND MARKETING VICE PRESIDENT, discussed with family, reviewed EMR data (avail), discussed with nursing, discussed with case mgmt, reviewed images, amended to note Attending Assessment/Plan: Patient is aaox 3 oriented. Patient had extensive investigation including CTA head/neck so far which has resulted negative for acute pathology. Labs with improvement in leukocytosis. Vital stable. Afebrile. She does have pain while moving her wrist and decreased range of motion of her fingers with mild improvement after NSAIDs. Patient took baclofen at high doses given recently. Discontinued baclofen. EEG with possible toxic metabolic encepahlaopthy likely medication induced. PT consult. Patient requesting ryder KHAN.
[2017-10-16 15:00] VITALS: BP 106/68
[2017-10-16 22:53] VITALS: BP 104/68
[2017-10-17 06:24] VITALS: BP 120/66
[2017-10-17 08:18] LABS: ABSOLUTE BASOPHIL COUNT 0 /CUMM (0.0-0.2); ABSOLUTE EOSINOPHIL COUNT 0.1 /CUMM (0.0-0.7); ABSOLUTE GRANULOCYTE CT 9.1 /CUMM (1.4-6.5); ABSOLUTE LYMPH COUNT 1.2 /CUMM (1.2-3.4); ABSOLUTE MONOCYTE COUNT 1.3 /CUMM (0.10-0.60); BASOPHIL % 0.3 % (0.0-2.0); EOSINOPHIL % 0.8 % (0-5); GRANULOCYTE % 77.1 % (42.2-75.2); HEMATOCRIT 38.1 % (37-47); MEAN CORPUSCULAR HGB 30.2 PG (27.0-31.0); MEAN CORPUSCULAR VOLUME 88.9 FL (81.0-99.0); MEAN PLATELET VOLUME 10.2 FL (7.4-10.4); PLATELET COUNT 160 /CUMM (130-400); RED BLOOD CELL CT 4.28 /CUMM (4.20-5.40); WHITE BLOOD CELL COUNT 11.8 /CUMM (4.8-10.8)
--- NOTE | 2017-10-17 08:58 | PN- Housestaff ---
Pawan PATTON,Abdiaziz 10/17/17 0858: Subjective Follow-up For: r. wrist pain altered mental status Subjective: Saw pt at bedside this AM. She stated that she felt much better. However, she still had hand pain and is unable to largely move her wrist and fingers. She was afebrile and had no acute overnight events lastnight. Review of Systems Constitutional: Denies: chills, malaise. EENTM: Denies: blurred vision. Cardiovascular: Denies: chest pain, palpitations. Respiratory: Denies: short of breath. Gastrointestinal: Denies: abdominal pain, constipation, vomiting. Genitourinary: Reports: no symptoms. Musculoskeletal: Reports: joint pain, joint swelling, muscle pain. Skin: Reports: no symptoms. Objective Last 24 Hrs of Vital Signs/I&O Vital Signs Date Time Temp Pulse Resp B/P B/P Pulse O2 O2 Flow FiO2 Mean Ox Delivery Rate 10/17 0800 Room Air 10/17 0624 99.4 71 20 120/66 94 Room Air 10/16 2253 98.0 70 16 104/68 95 Room Air 10/16 1500 98.1 74 18 106/68 94 Room Air Intake & Output 10/17 1600 10/17 0800 10/17 0000 Intake Total 240 80 Output Total 250 Balance -10 80 Intake, Oral 240 80 Output, Urine 250 Physical Exam General Appearance: Alert, Oriented X3, Cooperative, No Acute Distress Skin: No Significant Lesion HEENT: Atraumatic, PERRLA, EOMI Neck: Supple Cardiovascular: Regular Rate, 2/6 MURMUR AT RUSB Lungs: Normal Air Movement Abdomen: Soft, No Tenderness Current Medications: Current Medications Sig/Errol Start time Last Medication Dose Route Stop Time Status Admin Aspirin 81 MG DAILY 10/14 1354 DC 10/17 PO 0806 Atorvastatin Calcium 40 MG 1700 10/14 1700 AC 10/16 PO 1706 Bisacodyl 10 MG ONCE PRN 10/17 0915 AC TX Bisacodyl 5 MG DAILY PRN 10/16 1915 AC PO Docusate Sodium 100 MG DAILY NEEDED PRN 10/14 2215 AC 10/16 PO 0608 Enoxaparin Sodium 40 MG DAILY 10/14 0900 AC 10/17 SC 0807 Ibuprofen 600 MG TID 10/17 0925 UNVr PO Ondansetron HCl 4 MG Q6P PRN 10/13 2230 AC 10/14 IV 0606 Polyethylene Glycol 17 GM DAILY 10/15 0900 AC 10/17 PO 0806 Senna 187 MG AT BEDTIME NEED.. 10/14 2215 AC 10/16 PO 0608 Last 24 Hrs of Lab/Guy Results Last 24 Hrs of Labs/Mics: Laboratory Tests 10/17/17 0620: Anion Gap 12, Estimated GFR > 60, BUN/Creatinine Ratio 27.5 H, CBC w Diff NO MAN DIFF REQ, RBC 4.28, MCV 88.9, MCH 30.2, MCHC 34.0, RDW 13.0, MPV 10.2, Gran % 77.1 H, Lymphocytes % 10.4 L, Monocytes % 11.4 H, Eosinophils % 0.8, Basophils % 0.3, Absolute Granulocytes 9.1 H, Absolute Lymphocytes 1.2, Absolute Monocytes 1.3 H, Absolute Eosinophils 0.1, Absolute Basophils 0 Assessment/Plan Assessment: This a 77 yo female with PMH of HTN, HLD, prior CVA, brain aneurysm s/p gamma knife who comes in for CC AMS. In ED she was agitated and incapable of following any commands except repeating "Oh my God." At this time most likely etiology of AMS seems to be baclofen toxicity, though an initial differential included intracranial hemorrhage, CVA (given prev hx CVA), carotid/vertebral artery dissection but CT/CTA not indicative of either, infectious etiology but negative LP. PLAN 1. AMS: CTA head and neck, MRI clear. Initial EEG markedly abnormal without evidence of epileptiform activity. Pt does endorse remote hx of seizures for which she states she no longer needed medications. Negative Utox. Hemorrhage ruled out by CT head. Pt is much improved today. Her mental status is back to baseline. LP negative * Follow up neuro consult * passed swallow eval * Con't Telemetry * asa * statin * ANDREI/ANCA/RPR pending, RF < 8.6, Lyme 0.22 * CSF lab values within normal limits * Follow Baclofen lvl * Right hand CXR showed no acute osseous malformations, right foot showed healing third metatarsal fracture * CT spine showed degenerative spondylosis 2. HTN: * Holding BP meds 3. Urinary retention: Pt had c/o abdominal pain yesterday which seemed to relieve after straight cath. Possible medication related urinary retention. * Straight cath protocol 4. Leukocytosis: Unsure of etiology but went up to 16 today. Pt has been afebrile. However,will proceed with infectious work up. * BCX ngtd * UCX ngtd * LP * XRY chest nml 5. R hand pain and swelling: Continued pain and swelling of right hand, decreased lead loader strength. Marked swelling in r. hand today. Will con't monitor. * Reevaluated by physical therapy who is now recommending STR due to inability to safely lead loader her walker. * Awaiting bed placement and STR, otherwise stable for discharge * xry hand wnl Diet: Regular diet DT prophylaxis: Lovenox, alps CODE STATUS: Full code Problem List: 1. Back pain 2. Altered mental status Pain Ratin Pain Location: none Pain Goal: Remain pain free Pain Plan: none Tomorrow's Labs & Rationales: none Issa Tian 10/17/17 1337: Attending MD Review Statement Attending Statement Attending MD Statement: examined this patient, discuss w/resident/PA/FELT FINISHING SUPERVISOR, agreed w/resident/PA/FELT FINISHING SUPERVISOR, discussed with family, reviewed EMR data (avail), discussed with nursing, discussed with case mgmt, reviewed images, amended to note
[2017-10-17 14:02] VITALS: BP 98/60
[2017-10-17 22:37] VITALS: BP 100/60
[2017-10-18 07:08] VITALS: BP 108/70
--- NOTE | 2017-10-18 07:52 | PN- Housestaff ---
Pawan PATTON,Abdiaziz 10/18/17 0751: Subjective Follow-up For: AMS Subjective: Saw pt at bedside this AM. No acute overnight events or complaints. Her r. hand seems to be improving and she was able to move it with substantially less pain. Pending PT to see if she can be DC home or STR Review of Systems Constitutional: Denies: chills, fever, weakness. EENTM: Reports: no symptoms. Cardiovascular: Denies: chest pain, palpitations. Respiratory: Denies: cough, short of breath. Gastrointestinal: Denies: abdominal pain. Genitourinary: Reports: no symptoms. Musculoskeletal: Reports: joint swelling. Objective Last 24 Hrs of Vital Signs/I&O Vital Signs Date Time Temp Pulse Resp B/P B/P Pulse O2 O2 Flow FiO2 Mean Ox Delivery Rate 10/18 0853 Room Air 10/18 0841 Room Air 10/18 0708 98.0 63 20 108/70 96 10/17 2237 98.1 62 20 100/60 96 Room Air 10/17 1402 98.4 64 20 98/60 94 Room Air Intake & Output 10/18 1600 10/18 0800 10/18 0000 Intake Total 200 620 Output Total Balance 200 620 Intake, Oral 200 620 Patient 69.116 kg Weight Weight Bed scale Measurement Method Physical Exam General Appearance: Alert, Oriented X3, Cooperative, No Acute Distress Skin: No Significant Lesion HEENT: Atraumatic, PERRLA, EOMI Neck: Supple Cardiovascular: Regular Rate, Normal S1, Normal S2 Lungs: Normal Air Movement Abdomen: Soft, No Tenderness Neurological: Normal Speech, Cranial Nerves 3-12 NL Extremities: No Edema Assessment/Plan Assessment: Assessment: This a 77 yo female with PMH of HTN, HLD, prior CVA, brain aneurysm s/p gamma knife who comes in for CC AMS. In ED she was agitated and incapable of following any commands except repeating "Oh my God." At this time most likely etiology of AMS seems to be baclofen toxicity, though an initial differential included intracranial hemorrhage, CVA (given prev hx CVA), carotid/vertebral artery dissection but CT/CTA not indicative of either, infectious etiology but negative LP. PLAN 1. AMS: CTA head and neck, MRI clear. Initial EEG markedly abnormal without evidence of epileptiform activity. Pt does endorse remote hx of seizures for which she states she no longer needed medications. Negative Utox. Hemorrhage ruled out by CT head. Pt is much improved today. Her mental status is back to baseline. LP negative * Follow up neuro consult * passed swallow eval * Con't Telemetry * asa * statin * ANDREI/ANCA/RPR pending, RF < 8.6, Lyme 0.22 * CSF lab values within normal limits * Follow Baclofen lvl * Right hand CXR showed no acute osseous malformations, right foot showed healing third metatarsal fracture * CT spine showed degenerative spondylosis 2. HTN: * Holding BP meds 3. Urinary retention: Pt had c/o abdominal pain yesterday which seemed to relieve after straight cath. Possible medication related urinary retention. * Straight cath protocol 4. Leukocytosis: Unsure of etiology but went up to 16 today. Pt has been afebrile. However,will proceed with infectious work up. * BCX ngtd * UCX ngtd * LP * XRY chest nml 5. R hand pain and swelling: Continued pain and swelling of right hand, decreased business process lead strength. Marked swelling in r. hand today. Will con't monitor. * Reevaluated by physical therapy who is now recommending STR due to inability to safely business process lead her walker. * Awaiting bed placement and STR, otherwise stable for discharge * xry hand wnl Diet: Regular diet DT prophylaxis: Lovenox, alps CODE STATUS: Full code Problem List: 1. Altered mental status Pain Ratin Pain Location: NONE Pain Goal: Remain pain free Pain Plan: NONE Tomorrow's Labs & Rationales: NONE Issa Tian 10/18/17 1426: Attending MD Review Statement Attending Statement Attending MD Statement: examined this patient, discuss w/resident/PA/CONVERTIBLE POWER SHOVEL OPERATOR, agreed w/resident/PA/CONVERTIBLE POWER SHOVEL OPERATOR, discussed with family, reviewed EMR data (avail), discussed with nursing, discussed with case mgmt, reviewed images, amended to note Attending Assessment/Plan: Patient with improvement and medically stable for discharge.
--- NOTE | 2017-10-18 11:18 | Discharge Summary ---
Visit Information Visit Dates Admission Date: 10/12/17 Discharge Date: 10/18/2017 Hospital Course Course Attending Physician: Issa Tian MD Primary Care Physician: Kristina Raya MD Consulting Request: Consulting Specialty: Neurology Hospital Course: This a 77 yo female with PMH of HTN, HLD, prior CVA, brain aneurysm s/p gamma knife who comes in for CC AMS. In ED she was agitated and incapable of following any commands except repeating "Oh my God." The etiology of AMS seems to be baclofen toxicity, though an initial differential included intracranial hemorrhage, CVA (given prev hx CVA), carotid/vertebral artery dissection but CT/ CTA not indicative of either, infectious etiology ruled out by negative LP. MRI clear. Initial EEG markedly abnormal without evidence of epileptiform activity but it was done when pt was significantly altered. Pt does endorse remote hx of seizures for which she states she no longer needed medications. Utox negative. Lyme titer negative. RF negative. ANCA negative * Please follow up with Dr. Partida on outpatient basis. CT spine w/o contrast shows no pathology other than diffuse osteopenia. * Con't ASA and Statin * Baclofen level send out pending * Pt had mild persistent leukocytosis but around 11-12 throughout admission. No clear etiology as bcx, ucx, LP and cxr all negative. Please follow up outpt. * She also had some r. hand pain and swelling eval by negative xry but it was resolving on discharge. Con't monitor on out pt basis * Follow up with PT and OT Allergies: Coded Allergies: No Known Allergies (11/06/16) Significant Procedures: LP Pertinent Lab Results: Laboratory Tests 10/17 0620 Chemistry Sodium (137 - 145 mmol/L) 138 Potassium (3.5 - 5.1 mmol/L) 4.1 Chloride (98 - 107 mmol/L) 105 Carbon Dioxide (22 - 30 mmol/L) 21 L Anion Gap (5 - 16) 12 BUN (7 - 17 mg/dL) 22 H Creatinine (0.5 - 1.0 mg/dL) 0.8 Estimated GFR (>60 ml/min) > 60 BUN/Creatinine Ratio (7 - 25 %) 27.5 H Hematology CBC w Diff NO MAN DIFF REQ WBC (4.8 - 10.8 /CUMM) 11.8 H RBC (4.20 - 5.40 /CUMM) 4.28 Hgb (12.0 - 16.0 G/DL) 12.9 Hct (37 - 47 %) 38.1 MCV (81.0 - 99.0 FL) 88.9 MCH (27.0 - 31.0 PG) 30.2 MCHC (33.0 - 37.0 G/DL) 34.0 RDW (11.5 - 14.5 %) 13.0 Plt Count (130 - 400 /CUMM) 160 MPV (7.4 - 10.4 FL) 10.2 Gran % (42.2 - 75.2 %) 77.1 H Lymphocytes % (20.5 - 51.1 %) 10.4 L Monocytes % (1.7 - 9.3 %) 11.4 H Eosinophils % (0 - 5 %) 0.8 Basophils % (0.0 - 2.0 %) 0.3 Absolute Granulocytes (1.4 - 6.5 /CUMM) 9.1 H Absolute Lymphocytes (1.2 - 3.4 /CUMM) 1.2 Absolute Monocytes (0.10 - 0.60 /CUMM) 1.3 H Absolute Eosinophils (0.0 - 0.7 /CUMM) 0.1 Absolute Basophils (0.0 - 0.2 /CUMM) 0 Microbiology Date/Time Procedure - Status Source Growth 10/15 1515 CSF Culture - COMP CENT N S 10/15 1515 Gram Stain - COMP CENT N S 10/15 1442 Body Fluid Culture - CAN BODY FLUID Cancelled: OE ERROR 10/15 144 Gram Stain - CAN BODY FLUID Cancelled: OE ERROR Vital Signs Date Time Temp Pulse Resp B/P B/P Pulse O2 O2 Flow FiO2 Mean Ox Delivery Rate 10/18 0853 Room Air 10/18 0841 Room Air 10/18 0708 98.0 63 20 108/70 96 10/17 2237 98.1 62 20 100/60 96 Room Air 10/17 1402 98.4 64 20 98/60 94 Room Air Disposition Summary Disposition Principal Diagnosis: Altered mental status Additional Diagnosis: r. hand swelling Discharge Disposition: SNF Discharge Instructions General Discharge Information Code Status: Full Code Patient's Diet: as tolerated Patient's Activity: as tolerated Follow-Up Instructions/Appts: see above Medications at Discharge Discharge Medications: Stop taking the following medications: Baclofen (Baclofen) 10 MG TABLET ORAL THREE TIMES A DAY NEEDED as needed for muscle spasm/strain Qty = 30 Continue taking these medications: Simvastatin (Simvastatin*) 40 MG TABLET 1 Tablet ORAL Every night Qty = 90 Comments: Last Taken: 10/17/17 Time: 4:30 PM Famotidine (Famotidine) 40 MG TABLET 1 Tablet ORAL DAILY Qty = 90 Comments: NOT GIVEN IN HOSPITAL Aspirin (Aspirin*) 81 MG TAB.CHEW 1 Tablet ORAL DAILY Comments: NOT GIVEN IN HOSPITAL Calcium (Elemental-Fr Calcarb) (Calcium) 600 MG CALCIUM (1,500 MG) TABLET 1 Tablet ORAL DAILY Comments: NOT GIVEN IN HOSPITAL Cholecalciferol (Vitamin D3) (Vitamin D) 2,000 UNIT TABLET 1 Tablet ORAL DAILY Comments: NOT GIVEN IN HOSPITAL Ibuprofen (Ibuprofen) 600 MG TABLET 1 Tablet ORAL EVERY SIX HOURS NEEDED as needed for pain Qty = 30 Instructions: with food Comments: Last Taken: 10/18/17 Time: 9:15 AM Copies To: Elver PATTON,Kristina Attending MD Review Statement Documenting Attending: Issa Tian MD Other Findings: Toxic metabolic encephaloapthy with abnormal EEG likely medication induced. Advers effect of Baclofen.
[2017-10-18 14:18] VITALS: BP 118/60
== END 2017-10-18 18:47 | disposition home health service (06) | DRG 93 ==
LOC: ERH 19:19 → 1NO 21:47 → ERHI 21:47 → EDBEDREQ 10-13 17:17 → ENRESERV 10-13 20:45 → ENTRNSPT 10-13 21:32 → EDTRNSPTSTS 10-13 21:45 → 1NO 10-13 21:51 → CMPTRNSPT 10-13 22:27 → 1NO 10-17 14:55
PROVIDERS: Dermatology; Emergency Medicine; Student in an Organized Health Care Education/Training Program
PROC: 009U3ZX Drainage of Spinal Canal, Percutaneous Approach, Diagnostic (ICD-10-PCS; principal; 2017-10-15)
PROC: B01B1ZZ Fluoroscopy of Spinal Cord using Low Osmolar Contrast (ICD-10-PCS; principal; 2017-10-15)
DX: G92 Toxic encephalopathy (principal); D72.829 Elevated white blood cell count, unspecified; E78.5 Hyperlipidemia, unspecified; K21.9 Gastro-esophageal reflux disease without esophagitis; R33.0 Drug induced retention of urine; T42.8X5A Adverse effect of antiparkinsonism drugs and other central muscle-tone depressants, initial encounter; T42.8X1A Poisoning by antiparkinsonism drugs and other central muscle-tone depressants, accidental (unintentional), initial encounter; I10 Essential (primary) hypertension; Z86.73 Personal history of transient ischemic attack (TIA), and cerebral infarction without residual deficits; Z79.82 Long term (current) use of aspirin; Z90.710 Acquired absence of both cervix and uterus; R33.9 Retention of urine, unspecified; M47.9 Spondylosis, unspecified; M79.641 Pain in right hand; M79.89 Other specified soft tissue disorders
CPT/HCPCS: 1NP; 70551; 86021; 86618; 87070; 87075; 87205; ERO; 36415; 36592; 71045; 73120-RT; 73630-LT; 74018; 74176; 77002; 80307; 81003; 82436; 86431; 87040; 87086; 88305; 93005; 93010; 93306; 95816; 97110-GO; 97116-GO; 97161-GP; 97166-GO; 97530-GO; J1650; J2405; J3490; J7040; J7042